=== PATIENT | female | born 1940 | race Caucasian/White ===

== ENCOUNTER → 2022-11-10 | Outpatient (REF) | payer MEDICARE, SELFPAY ==
[2022-11-10 10:45] LABS: Hematocrit 34.1 % (37-47); Hemoglobin 10.7 g/dL (12.0-15.0); Mean Corp Hgb Conc 31.4 g/dL (32-36); Mean Corpuscular Hgb 28.9 pg (27.0-32.0); Mean Corpuscular Volume 92.2 fL (81-99); Mean Platelet Vol. 10.7 fl (6.2-12.0); Platelet Count 237 K/mm3 (150-450); RBC Distribution Width CV 13.3 % (11.6-14.6); RBC Distribution Width SD 45.4 fl (35.1-43.9); White Blood Count 6.7 K/mm3 (4.4-11.0)
[2022-11-10 10:46] LABS: Vitamin D,25 Hydroxy 46.1 ng/mL
[2022-11-10 10:55] LABS: ALB/GLOB Ratio 0.9 RATIO (0.9-2.4); AST(SGOT) 17 U/L (15-37); Alanine Aminotransfer ALT/SGPT 13 U/L (13-56); Alkaline Phosphatase 78 U/L (45-117); Anion Gap 7 (5-15); BUN 27 mg/dL (7-18); BUN/Creat Ratio 22.5 RATIO (10-20); Calcium,Total 9.8 mg/dL (8.5-10.1); Chloride 109 mmol/L (98-107); EST Glomerular Filtration Rate 46 mL/min (>60); Est Glom Filt Rate - Afr Amer 55 mL/min (>60); Globulin 3.2 g/dL (2.2-4.2); Glucose 63 mg/dL (74-106); Potassium 4.5 mmol/L (3.5-5.1); Protein, Total 6.2 g/dL (6.4-8.2); Sodium Level 141 mmol/L (136-145); T4 Free Direct 1.12 ng/dL (0.76-1.46); Thyroid Stim Hormone (TSH) 4.25 uIU/mL (0.358-3.74)
== END ==
PROVIDERS: Visit Provider Family Medicine
DX: I82.409 Acute embolism and thrombosis of unspecified deep veins of unspecified lower extremity (principal); E03.9 Hypothyroidism, unspecified; M81.0 Age-related osteoporosis without current pathological fracture
CPT/HCPCS: 36415; 80053; 82306; 84439; 84443; 85027

== ENCOUNTER → 2022-11-12 | Outpatient (REF) | payer MEDICARE, SELFPAY | PROVIDERS: Visit Provider Family Medicine | DX: Z79.899 Other long term (current) drug therapy (principal); D64.9 Anemia, unspecified | CPT/HCPCS: 82274 ==

== ENCOUNTER → 2022-12-16 | Outpatient (REF) | payer MEDICARE, SELFPAY ==
[2022-12-17 07:10] LABS: Mucous, Urine 0 SEEN /hpf (<or=2+)
[2022-12-17 07:50] LABS: Glucose, Dipstick Normal (Normal); Ketone-Dipstick Negative (Negative); Leukocyte Esterase-Dipstick 100 /ul (Negative); Nitrite-Dipstick Positive (Negative); Occult Blood-Urine 50 /ul (Negative); Protein-Dipstick 15 mg/dl (Negative); Urine Bilirubin Dipstick Negative (Negative); Urine Urobilinogen Normal (Normal)
[2022-12-17 07:54] LABS: Color, Urine Yellow (Yellow); Urine Clarity Sl Cloudy (Clear)
[2022-12-17 08:12] LABS: Bacteria 3+ /hpf (None Seen); Red Blood Cells-Urine 0-5 SEEN /hpf (0-5); Squamous Epithelial Cells - UA 0-5 SEEN /hpf (5-10); White Blood Cells 50-100 SEEN /hpf (0-5)
== END ==
PROVIDERS: Visit Provider Family Medicine
DX: N39.0 Urinary tract infection, site not specified (principal)
CPT/HCPCS: 81001; 87077; 87086; 87088; 87186

== ENCOUNTER → 2023-03-18 | Outpatient (REF) | payer MEDICARE, SELFPAY ==
[2023-03-18 09:00] LABS: T4 Total, Thyroxin 11.9 ug/dL (4.8-13.9); Thyroid Stim Hormone (TSH) 2.47 uIU/mL (0.358-3.74)
== END ==
PROVIDERS: Referring Provider Family Medicine; Visit Provider Family Medicine
DX: E03.9 Hypothyroidism, unspecified (principal)
CPT/HCPCS: 36415; 84436; 84443

== ENCOUNTER → 2023-04-29 | Outpatient (REF) | payer MEDICARE, SELFPAY ==
[2023-04-29 06:49] LABS: Absolute Lymphocyte Count 2.33 X10^3/uL (0.83-4.51); Absolute Neutrophil Count 4.6 X10^3/uL (2.0-7.7); Basophil# 0.09 X10^3/uL; Basophil% 1.1 % (0-1); Eosinophil# 0.39 X10^3/uL; Eosinophils% 4.9 % (0-5); Hematocrit 37.2 % (37-47); Hemoglobin 11.6 g/dL (12.0-15.0); Lymphocyte # 2.33 X10^3/ul (0.83-4.51); Lymphocyte % 29.3 % (19-41); Mean Corp Hgb Conc 31.2 g/dL (32-36); Mean Corpuscular Hgb 27.9 pg (27.0-32.0); Mean Corpuscular Volume 89.4 fL (81-99); Mean Platelet Vol. 10.1 fl (6.2-12.0); Monocyte# 0.55 X10^3/uL; Monocyte% 6.9 % (0-10); NRBC Flagged by Analyzer 0 % (0-5); Neutrophil # 4.55 X10^3/uL (2.7-7.7); Neutrophil % 57.4 % (47-70); Platelet Count 280 K/mm3 (150-450); RBC Distribution Width CV 14.6 % (11.6-14.6); RBC Distribution Width SD 47.8 fl (35.1-43.9); Red Blood Count 4.16 M/mm3 (4.2-5.4); White Blood Count 7.9 K/mm3 (4.4-11.0)
[2023-04-29 07:33] LABS: Iron 52 ug/dL (50-170); Iron Binding Capacity,Total 372 ug/dL (250-450)
[2023-04-29 09:20] LABS: Color, Urine Yellow (Yellow); Glucose, Dipstick Normal (Normal); Ketone-Dipstick Negative (Negative); Leukocyte Esterase-Dipstick 500 /ul (Negative); Nitrite-Dipstick Positive (Negative); Occult Blood-Urine 150 /ul (Negative); Protein-Dipstick 30 mg/dl (Negative); Specific Gravity, Urine 1.015 (1.002-1.030); Urine Bilirubin Dipstick Negative (Negative); Urine Clarity Sl. Cloudy (Clear); Urine Urobilinogen Normal (Normal); Urine pH 6.5 (5.0 - 8.0)
== END ==
PROVIDERS: Visit Provider Family Medicine
DX: D64.9 Anemia, unspecified (principal); N39.0 Urinary tract infection, site not specified; N39.46 Mixed incontinence
CPT/HCPCS: 36415; 81002; 83540; 83550; 85025; 87077; 87086; 87088; 87186

== ENCOUNTER → 2023-05-17 | Outpatient (REF) | payer MEDICARE, SELFPAY ==
[2023-05-17 08:50] LABS: Hematocrit 36.5 % (37-47); Hemoglobin 11.6 g/dL (12.0-15.0); Mean Corp Hgb Conc 31.8 g/dL (32-36); Mean Corpuscular Hgb 28.4 pg (27.0-32.0); Mean Corpuscular Volume 89.5 fL (81-99); Mean Platelet Vol. 10.8 fl (6.2-12.0); Platelet Count 260 K/mm3 (150-450); RBC Distribution Width CV 15.3 % (11.6-14.6); RBC Distribution Width SD 50.1 fl (35.1-43.9); Red Blood Count 4.08 M/mm3 (4.2-5.4); White Blood Count 7.3 K/mm3 (4.4-11.0)
[2023-05-17 09:16] LABS: AST(SGOT) 16 U/L (15-37); Alanine Aminotransfer ALT/SGPT 14 U/L (13-56); Albumin, Serum 3.3 g/dL (3.2-5.0); Alkaline Phosphatase 94 U/L (45-117); Anion Gap 5 (5-15); BUN 24 mg/dL (7-18); BUN/Creat Ratio 19.4 RATIO (10-20); Calcium,Total 9.5 mg/dL (8.5-10.1); Chloride 112 mmol/L (98-107); Creatinine, Serum 1.24 mg/dL (0.55-1.02); EST Glomerular Filtration Rate 44 mL/min (>60); Est Glom Filt Rate - Afr Amer 53 mL/min (>60); Globulin 3.4 g/dL (2.2-4.2); Glucose 87 mg/dL (74-106); Potassium 4.2 mmol/L (3.5-5.1); Protein, Total 6.7 g/dL (6.4-8.2); Sodium Level 142 mmol/L (136-145); T4 Free Direct 1.24 ng/dL (0.76-1.46); Thyroid Stim Hormone (TSH) 3.94 uIU/mL (0.358-3.74)
[2023-05-17 14:43] LABS: Vitamin D,25 Hydroxy 49.5 ng/mL
== END ==
PROVIDERS: Visit Provider Family Medicine
DX: N28.1 Cyst of kidney, acquired (principal); I82.403 Acute embolism and thrombosis of unspecified deep veins of lower extremity, bilateral; R39.15 Urgency of urination; M35.3 Polymyalgia rheumatica; M81.0 Age-related osteoporosis without current pathological fracture; M19.90 Unspecified osteoarthritis, unspecified site; Z79.899 Other long term (current) drug therapy
CPT/HCPCS: 36415; 80053; 82306; 84439; 84443; 85027

== ENCOUNTER → 2023-07-15 | Outpatient (REF) | payer MEDICARE, SELFPAY ==
[2023-07-15 09:52] LABS: Color, Urine Yellow (Yellow); Glucose, Dipstick Normal (Normal); Ketone-Dipstick Negative (Negative); Leukocyte Esterase-Dipstick 25 /ul (Negative); Nitrite-Dipstick Negative (Negative); Occult Blood-Urine 10 /ul (Negative); Protein-Dipstick 15 mg/dl (Negative); Specific Gravity, Urine 1.025 (1.002-1.030); Urine Bilirubin Dipstick Negative (Negative); Urine Clarity Sl. Cloudy (Clear); Urine Urobilinogen Normal (Normal)
== END ==
PROVIDERS: Visit Provider Family Medicine
DX: N39.0 Urinary tract infection, site not specified (principal)
CPT/HCPCS: 81002; 87086; 87088

== ENCOUNTER → 2023-07-18 | Outpatient (REF) | payer MEDICARE, SELFPAY ==
[2023-07-18 09:35] LABS: Thyroid Stim Hormone (TSH) 2.89 uIU/mL (0.358-3.74)
== END ==
PROVIDERS: Visit Provider Family Medicine
DX: E03.9 Hypothyroidism, unspecified (principal)
CPT/HCPCS: 36415; 84443

== ENCOUNTER 2023-08-08 19:43 | Inpatient (IN) | payer MEDICARE, SELFPAY ==
[2023-08-08 19:44] VITALS: BP 124/102; PULSE 84; RESP 18; TEMP 36; O2SAT 99
[2023-08-08 19:47] VITALS: BMI 34.5
--- NOTE | 2023-08-08 20:02 | CT_ITS ---
STUDY: CT ABDOMEN AND PELVIS WITH CONTRAST REASON FOR EXAM: Female, 82 years old. abdominal pain RADIATION DOSAGE (If Supplied By Facility): CTDIvol = ( 21.03 ) mGy, DLP = ( 1067.19 ) mGycm TECHNIQUE: Transaxial images were obtained from the dome of the diaphragm to the symphysis pubis without oral contrast. IV 100mL Isovue-370 was administered. Sagittal and coronal images were reconstructed. Individualized dose optimization techniques were used for this CT. COMPARISON: None. FINDINGS: Minor atelectasis left lower lobe. The visualized portions of the heart are within normal limits. Large hiatal hernia noted Normal liver. Distended gallbladder without calcified stones demonstrating mild pericholecystic fluid. Normal spleen. Normal pancreas. Normal bilateral adrenal glands. Right kidney is unobstructed. There is a large cyst arising from the upper pole. Normal left kidney. Normal visualized stomach. Normal small intestine. Normal colon. No evidence for acute appendicitis Atherosclerotic changes of the aorta without evidence for aneurysm. Normal inferior vena cava. Normal retroperitoneum. Nonspecific bladder distention Normal abdominal wall. Lumbar spine demonstrates mild spondylosis CT/Abdomen/Pelvis W IV Cont ONLY IMPRESSION: Distended gallbladder without calcified stones demonstrating pericholecystic fluid possibly due to acute cholecystitis. Gallbladder ultrasound recommended for further evaluation Electronically Signed: Rich Self MD at 21:10 EST ,
--- NOTE | 2023-08-08 20:02 | EDS_ITS ---
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 Patient states that it was right after lunch when she developed lower abdominal cramping, suddenly had 5 episodes of vomitus. Patient states he got very weak, and called the ambulance. Patient denies any blood in her stool, patient has any blood in her vomit. Patient states that she has not had any diarrhea. She did have a bowel movement she thinks early this morning. PFSH <IRMA Woods - Last Filed: 08/08/23 21:02> PFSH Allergy/AdvReac Type Severity Reaction Status Date / Time Sulfa (Sulfonamide Allergy PT UNSURE Verified 08/08/23 19:44 Antibiotics) OF REACTION Social History Smoking Status: Never smoker ROS <IRMA Woods - Last Filed: 08/08/23 21:02> ROS ED ROS Narrative Constitutional: Negative for fever, weight loss, weakness. Positive for chills Eyes: Negative for vision loss, vision change, double vision ENT: Negative for any sore throat, ear pain, congestion Cardiovascular: Negative for any chest pain, tightness, palpitations Respiratory: Negative for any cough, sputum production, hemoptysis, dyspnea, dyspnea on exertion, orthopnea Gastrointestinal: Negative for any diarrhea, constipation, blood in stool, blood in vomit. Positive for abdominal pain, nausea and vomiting : Negative for any urinary frequency, dysuria, retention, blood in urine Muscle skeletal: Negative for any myalgias, arthralgias, neck pain, back pain Neurological: Negative for any headache, syncope, numbness or tingling, dizziness Skin: Negative for any rashes, lumps, itching, abrasions, lacerations Psychiatric: Negative for any depression, anxiety, stress, suicidal ideation, homicidal ideation Hematologic: Negative for any easy bruising, excessive bruising, easy bleeding Allergies: Negative for any eczema, hives, rash EXAM <IRMA Woods - Last Filed: 08/08/23 21:02> Physical Exam Narrative Exam Narrative: Vital signs reviewed. HEET: Head normocephalic atraumatic, TMs clear bilaterally. Posterior pharynx is clear, dry mucous membranes. Nares clear bilaterally. Neck: Supple with no lymphadenopathy or tenderness. No signs of meningismus. Cardiac: Regular rate and rhythm no murmurs gallops or rubs, equal peripheral pulses bilaterally. Respiratory: Lungs clear to auscultation bilaterally. No chest tenderness. Abdomen: Soft, tenderness on deep palpation of the right lower, left lower abdomen. Nondistended. No abdominal bruit or pulsatile masses. No hepatosplenomegaly. Patient had hypoactive bowel sounds. Negative for any peritoneal signs. Extremities: No peripheral edema, no signs of gross trauma or deformity. Active full range of motion of all extremities. Neuro: Cranial nerves II through XII intact, no focal neurological deficits. Skin: Clean dry and intact with no rash, purpura, petechiae, vesicles or pustules. Backs/flank: No CVA tenderness, no midline spinal tenderness, no deformity. Psych: Normal mood and affect. No SI, HI or acute psychosis. Const Vital Signs: 08/08/23 19:44 Temperature 96.8 F L Temperature Source Temporal Pulse Rate 84 Respiratory Rate 18 Blood Pressure 124/102 H Blood Pressure Mean 109 Pulse Ox 99 <Dr. Clifton Flores MD - Last Filed: 08/08/23 22:06> Physical Exam Const Vital Signs: 08/08/23 19:44 Temperature 96.8 F L Temperature Source Temporal Pulse Rate 84 Respiratory Rate 18 Blood Pressure 124/102 H Blood Pressure Mean 109 Pulse Ox 99 [facility] <IRMA Woods - Last Filed: 08/08/23 21:02> [facility] Lab Data Labs: Laboratory Results - last 24 hr 08/08/23 08/08/23 20:09 21:17 WBC 11.0 RBC 4.60 Hgb 13.1 Hct 41.6 MCV 90.4 MCH 28.5 MCHC 31.5 L RDW Std Deviation 48.5 H RDW Coeff of Kwame 14.6 Plt Count 284 MPV 10.3 Immature Gran % (Auto) 0.500 Neut % (Auto) 86.1 H Lymph % (Auto) 10.1 L Storey % (Auto) 2.7 Eos % (Auto) 0.1 Baso % (Auto) 0.5 Absolute Neuts (auto) 9.5 H Absolute Lymphs (auto) 1.11 Nucleated RBC % 0 Sodium 138 Potassium 4.1 Chloride 106 Carbon Dioxide 26.0 Anion Gap 6 BUN 21 H Creatinine 1.23 H Est GFR (MDRD) Af Amer 53 L Est GFR (MDRD) Non-Af 44 L BUN/Creatinine Ratio 17.1 Glucose 156 H Calcium 9.9 Total Bilirubin 0.40 AST 12 L ALT 16 Alkaline Phosphatase 100 Total Protein 7.2 Albumin 3.6 Globulin 3.6 Albumin/Globulin Ratio 1.0 Lipase 18 Urine Color Yellow Urine Clarity Clear Urine pH 8.0 Ur Specific [place] 1.015 Urine Protein Negative Urine Glucose (UA) Normal Urine Ketones 15 H Urine Occult Blood 25 H Urine Nitrite Negative Urine Bilirubin Negative Urine Urobilinogen Normal Ur Leukocyte Esterase Negative Urine RBC 0-5 SEEN Urine WBC 0 SEEN Ur Squamous Epith Cells 0 SEEN Urine Bacteria 0 SEEN Urine Mucus 0 SEEN Radiography Diagnostic Testing: Clinical Impression(s) from Imaging Studies Abdomen/Pelvis CT 08/08/23 20:02 IMPRESSION: Distended gallbladder without calcified stones demonstrating pericholecystic fluid possibly due to acute cholecystitis. Gallbladder ultrasound recommended for further evaluation Electronically Signed: Rich Self MD at 21:10 EST Reading Location ID and State: [address] [place] [address] Tel , Service support , Treatment and Re-Evaluation :: Patient appears to be in no obvious respiratory distress, patient is dry, patient does look like she does not feel well. Vital signs are stable. Looks nontoxic. Patient differential diagnosis includes bowel obstruction, gastroenteritis, diverticulitis, appendicitis. Patient was using basic laboratory values concerning for electrolyte abnormalities, leukocytosis, elevated liver enzymes. Urinalysis to concern for any UTI. Patient received a CT scan of the abdomen pelvis. All radiologic examinations were read, reviewed by the emergency department attending. From these reads, a plan of care will be put in place. Patient will be given IV fluids, IV Zofran, I did offer the patient pain medicine however she declined at this time. Patient CBC was unremarkable, patient's chemistries show slight renal insufficiency creatinine of 1.23, GFR 53, this is baseline since 2022. Glucose 156. Lipase negative. <Dr. Clifton Flores MD - Last Filed: 08/08/23 22:06> [facility] Narrative Medical decision making narrative: I have personally performed a face to face assessment of the patient and have reviewed the DESTINY Note. I performed a substantive portion of the visit including all aspects of the following. My acosta findings include: History is 82-year-old female complaining of periumbilical and upper abdominal pain beginning around noon today. No prior abdominal surgeries. No fever. No vomiting. No diarrhea or constipation. No dysuria. Exam is [82-year-old female. Vital signs stable afebrile. Does not look septic or toxic. No distress. HEENT exam unremarkable. Neck nontender no lymphadenopathy. Lungs clear to auscultation bilaterally. Heart regular rhythm no murmur. Abdomen soft. Nondistended. Mild epigastric and right upper quadrant tenderness. No specific Gilmore sign. No hernia or mass. No obvious obstruction. No significant right lower quadrant tenderness. No pulsatile mass. Moving all 4 extremities. Neurologically she is awake and alert with no focal motor deficits.] Medical Decision Making [82-year-old female with abdominal pain. CAT scan labs are pending.] Other additions or changes: [None] I spoke to general surgeon on-call Dr. Naveed dixon. Patient will be admitted to his service. Started on IV Zosyn. He will evaluate her and decide if she needs to go to surgery tomorrow. He did want us to obtain a preop EKG which is being ordered. Patient will be made aware of the plan. History & Record Review Discussion w/independent historian: Patient and Family Additional record(s) reviewed:: Prior inpatient record, Prior outpatient record, Prior ED visit and Prior labs Lab Data Attestation: I reviewed the patient's lab results. Lab results narrative: CBC unremarkable. White count 11. H&H 13 and 41. Platelets 284. Electrolytes show gap of 6 BUN and creatinine of 21 and 1.2. Glucose 156. Liver enzymes are unremarkable. Lipase is normal at 18. Urinalysis is normal. CAT scan of the abdomen shows a distended gallbladder with pericholecystic fluid concerning for acute cholecystitis. Labs: Laboratory Results - last 24 hr 08/08/23 08/08/23 20:09 21:17 WBC 11.0 RBC 4.60 Hgb 13.1 Hct 41.6 MCV 90.4 MCH 28.5 MCHC 31.5 L RDW Std Deviation 48.5 H RDW Coeff of Kwame 14.6 Plt Count 284 MPV 10.3 Immature Gran % (Auto) 0.500 Neut % (Auto) 86.1 H Lymph % (Auto) 10.1 L Storey % (Auto) 2.7 Eos % (Auto) 0.1 Baso % (Auto) 0.5 Absolute Neuts (auto) 9.5 H Absolute Lymphs (auto) 1.11 Nucleated RBC % 0 Sodium 138 Potassium 4.1 Chloride 106 Carbon Dioxide 26.0 Anion Gap 6 BUN 21 H Creatinine 1.23 H Est GFR (MDRD) Af Amer 53 L Est GFR (MDRD) Non-Af 44 L BUN/Creatinine Ratio 17.1 Glucose 156 H Calcium 9.9 Total Bilirubin 0.40 AST 12 L ALT 16 Alkaline Phosphatase 100 Total Protein 7.2 Albumin 3.6 Globulin 3.6 Albumin/Globulin Ratio 1.0 Lipase 18 Urine Color Yellow Urine Clarity Clear Urine pH 8.0 Ur Specific [place] 1.015 Urine Protein Negative Urine Glucose (UA) Normal Urine Ketones 15 H Urine Occult Blood 25 H Urine Nitrite Negative Urine Bilirubin Negative Urine Urobilinogen Normal Ur Leukocyte Esterase Negative Urine RBC 0-5 SEEN Urine WBC 0 SEEN Ur Squamous Epith Cells 0 SEEN Urine Bacteria 0 SEEN Urine Mucus 0 SEEN Radiography Diagnostic Testing: Clinical Impression(s) from Imaging Studies Abdomen/Pelvis CT 08/08/23 20:02 IMPRESSION: Distended gallbladder without calcified stones demonstrating pericholecystic fluid possibly due to acute cholecystitis. Gallbladder ultrasound recommended for further evaluation Electronically Signed: iRch eSlf MD at 21:10 EST Reading Location ID and State: [facility] / [place] Tel , Service support , Rhythm Strip Rhythm Strip: Sinus Rhythm Rate: 82 Ectopy: None EKG Initial EKG: Attestation: I personally reviewed and interpreted this EKG as follows: Interpretation: Sinus Rhythm and No Acute Injury Pattern Comments: Normal sinus rhythm rate 82 no acute signs of OH or ischemia. Discharge Plan Dx/Rx/DC Orders Clinical Impression: Abdominal pain, Acute cholecystitis Disposition Disposition: [facility]
[2023-08-08] MEDS: Ondansetron 4 MG/2 ML Vial IV ×2 (20:16→22:12)
[2023-08-08] MEDS: 0.9% Normal Saline (1000mL) 1,000 ML 1000 ML IV (20:16)
[2023-08-08 20:20] LABS: Absolute Lymphocyte Count 1.11 X10^3/uL (0.83-4.51); Absolute Neutrophil Count 9.5 X10^3/uL (2.0-7.7); Basophil# 0.05 X10^3/uL; Basophil% 0.5 % (0-1); Eosinophil# 0.01 X10^3/uL; Eosinophils% 0.1 % (0-5); Hematocrit 41.6 % (37-47); Hemoglobin 13.1 g/dL (12.0-15.0); Lymphocyte # 1.11 X10^3/ul (0.83-4.51); Lymphocyte % 10.1 % (19-41); Mean Corp Hgb Conc 31.5 g/dL (32-36); Mean Corpuscular Hgb 28.5 pg (27.0-32.0); Mean Corpuscular Volume 90.4 fL (81-99); Mean Platelet Vol. 10.3 fl (6.2-12.0); Monocyte% 2.7 % (0-10); NRBC Flagged by Analyzer 0 % (0-5); Neutrophil # 9.45 X10^3/uL (2.7-7.7); Neutrophil % 86.1 % (47-70); Platelet Count 284 K/mm3 (150-450); RBC Distribution Width CV 14.6 % (11.6-14.6); RBC Distribution Width SD 48.5 fl (35.1-43.9)
[2023-08-08 20:39] LABS: AST(SGOT) 12 U/L (15-37); Alanine Aminotransfer ALT/SGPT 16 U/L (13-56); Albumin, Serum 3.6 g/dL (3.2-5.0); Alkaline Phosphatase 100 U/L (45-117); Anion Gap 6 (5-15); BUN 21 mg/dL (7-18); BUN/Creat Ratio 17.1 RATIO (10-20); Calcium,Total 9.9 mg/dL (8.5-10.1); Chloride 106 mmol/L (98-107); Creatinine, Serum 1.23 mg/dL (0.55-1.02); EST Glomerular Filtration Rate 44 mL/min (>60); Est Glom Filt Rate - Afr Amer 53 mL/min (>60); Globulin 3.6 g/dL (2.2-4.2); Glucose 156 mg/dL (74-106); Lipase 18 U/L (13-75); Potassium 4.1 mmol/L (3.5-5.1); Protein, Total 7.2 g/dL (6.4-8.2); Sodium Level 138 mmol/L (136-145)
[2023-08-08 21:23] LABS: Bacteria 0 SEEN /hpf (None Seen); Mucous, Urine 0 SEEN /hpf (<or=2+); Squamous Epithelial Cells - UA 0 SEEN /hpf (5-10); White Blood Cells 0 SEEN /hpf (0-5)
[2023-08-08 21:27] LABS: Color, Urine Yellow (Yellow); Glucose, Dipstick Normal (Normal); Ketone-Dipstick 15 mg/dl (Negative); Leukocyte Esterase-Dipstick Negative /ul (Negative); Nitrite-Dipstick Negative (Negative); Occult Blood-Urine 25 /ul (Negative); Protein-Dipstick Negative (Negative); Specific Gravity, Urine 1.015 (1.002-1.030); Urine Bilirubin Dipstick Negative (Negative); Urine Clarity Clear (Clear); Urine Urobilinogen Normal (Normal)
[2023-08-08 21:33] LABS: Red Blood Cells-Urine 0-5 SEEN /hpf (0-5)
--- NOTE | 2023-08-08 21:47 | EKG12_ITS ---
Test Reason : DYSRHYTHMIA Blood Pressure : / mmHG Vent. Rate : 082 BPM Atrial Rate : 082 BPM P-R Int : 204 ms QRS Dur : 076 ms QT Int : 374 ms P-R-T Axes : 043 -01 059 degrees QTc Int : 436 ms Normal sinus rhythm Normal ECG Confirmed by DELMY STARKEY, RICKEY ([id number]), medical editor MEG SNOWDEN ([id number]) on 08/09/2023 7:53:17 AM Referred By: Confirmed By:RICKEY BROCK MD
[2023-08-08] MEDS: Piperacil/Tazobactam 4.5 GM in 0.9% Normal Saline (100mL MB+) 100 ML IV (22:11)
[2023-08-08] MEDS: Morphine 4 MG/ML Syringe IV (22:11)
[2023-08-08 22:30] VITALS: BP 188/89; PULSE 75; RESP 18; TEMP 36.6; O2SAT 98
[2023-08-09] VITALS (8 sets, daily range): BP systolic 139–168; BP diastolic 68–99; PULSE 78–108; RESP 16–20; TEMP 36.6–37.1; O2SAT 93–99; BMI 32.3
[2023-08-09] MEDS: 0.9% Normal Saline (1000mL) 1,000 ML 100 ML IV ×3 (02:11→21:20)
[2023-08-09 03:25] LABS: Absolute Neutrophil Count 11.1 X10^3/uL (2.0-7.7); Basophil# 0.03 X10^3/uL; Basophil% 0.2 % (0-1); Hematocrit 40.3 % (37-47); Hemoglobin 13.1 g/dL (12.0-15.0); Lymphocyte % 7.2 % (19-41); Mean Corp Hgb Conc 32.5 g/dL (32-36); Mean Corpuscular Hgb 29.6 pg (27.0-32.0); Mean Platelet Vol. 10.6 fl (6.2-12.0); Monocyte# 0.48 X10^3/uL; Monocyte% 3.8 % (0-10); NRBC Flagged by Analyzer 0 % (0-5); Neutrophil # 11.12 X10^3/uL (2.7-7.7); Neutrophil % 88.4 % (47-70); Platelet Count 260 K/mm3 (150-450); RBC Distribution Width CV 14.7 % (11.6-14.6); RBC Distribution Width SD 49.4 fl (35.1-43.9); Red Blood Count 4.43 M/mm3 (4.2-5.4); White Blood Count 12.6 K/mm3 (4.4-11.0)
[2023-08-09 03:45] LABS: ALB/GLOB Ratio 0.9 RATIO (0.9-2.4); AST(SGOT) 51 U/L (15-37); Alanine Aminotransfer ALT/SGPT 36 U/L (13-56); Albumin, Serum 3.6 g/dL (3.2-5.0); Alkaline Phosphatase 102 U/L (45-117); Anion Gap 8 (5-15); BUN 17 mg/dL (7-18); BUN/Creat Ratio 14.8 RATIO (10-20); Calcium,Total 9.3 mg/dL (8.5-10.1); Chloride 104 mmol/L (98-107); Creatinine, Serum 1.15 mg/dL (0.55-1.02); EST Glomerular Filtration Rate 48 mL/min (>60); Est Glom Filt Rate - Afr Amer 58 mL/min (>60); Estimated Creatinine Clearance 26.16 ml/min; Globulin 3.8 g/dL (2.2-4.2); Glucose 155 mg/dL (74-106); Potassium 4.3 mmol/L (3.5-5.1); Protein, Total 7.4 g/dL (6.4-8.2); Sodium Level 136 mmol/L (136-145)
[2023-08-09] MEDS: Piperacil/Tazobactam 3.375 GM in 0.9% Normal Saline (50mL MB+) 50 ML IV ×3 (05:40→21:20)
--- NOTE | 2023-08-09 06:23 | EKG12_ITS ---
Test Reason : PRE OP Blood Pressure : / mmHG Vent. Rate : 084 BPM Atrial Rate : 084 BPM P-R Int : 188 ms QRS Dur : 076 ms QT Int : 368 ms P-R-T Axes : 029 -20 040 degrees QTc Int : 434 ms Normal sinus rhythm Normal ECG When compared with ECG of 08-AUG-2023 21:55, MANUAL COMPARISON REQUIRED, DATA IS UNCONFIRMED Confirmed by DELMY STARKEY, RICKEY ([id number]), food expeditor ANDERSON GARCIA ([id number]) on 08/09/2023 1:20:13 PM Referred By: Confirmed By:RICKEY BROCK MD
[2023-08-09 06:43] LABS: International Normalized Ratio 1.1; Prothrombin Time (Protime)PT. 14.6 SECONDS (11.7-14.9)
[2023-08-09 07:04] LABS: Thyroid Stim Hormone (TSH) 1.14 uIU/mL (0.358-3.74)
--- NOTE | 2023-08-09 07:04 | US_ITS ---
INDICATION: acute cholecystitis EXAMINATION: Ultrasound US Abdomen Limited (quadrant) TECHNIQUE: Stafford scale and color doppler imaging was performed of the right upper quadrant. COMPARISON: Correlation is made with the recent CT abdomen pelvis of 08/08/2023. FINDINGS: LIVER: Suboptimal visualization of the liver due to overlying bowel gas. The liver appears to measure about 11 cm in length. Normal hepatopedal flow. No focal hepatic lesion. There is no free fluid. GALLBLADDER AND BILIARY TREE: Gallstone in the gallbladder neck measuring about 2.1 cm. Thickening of the gallbladder wall measuring about 6 mm. The proximal common bile duct measures 4.2, which is within normal limits for the patient''s age. Sonographic Gilmore''s sign: Positive. PANCREAS: The pancreas is obscured by bowel gas and not visualized. RIGHT KIDNEY: The right kidney appears to be echogenic but poorly visualized. There is a large cyst with septation in the lateral aspect of the right kidney measuring about 5.2 cm probably simple and no further follow-up exam is needed. US/Gallbladder IMPRESSION: 1. Gallstone with thickening of the gallbladder wall and positive sonographic Gilmore''s sign concerning for acute cholecystitis. 2. Right renal cyst. Electronically Signed: Kory Pritchett MD at 8:19 EST ,
--- NOTE | 2023-08-09 08:10 | HP.PCM.SX_ITS ---
HPI - General General Date of Admission: 08/08/23 HPI Narrative DIO BRENNER, is a 82 F who presents with pain that started yesterday afternoon. Patient reported that she did have nausea and vomiting as well. She reports right upper quadrant pain. It does not radiate. She denies fevers or chills. [facility] Medical History (Updated 08/09/23 @ 01:22 by Darshana Siddiqi RN) Anemia Chronic pain DVT (deep venous thrombosis) Functional urinary incontinence Hypothyroidism Kidney disease Vision loss of left eye Vision loss of right eye Home Medications apixaban 5 mg tablet (Eliquis) 5 mg PO BID anticoagulant 08/08/23 [History Last Taken Unknown] ferrous sulfate 325 mg (65 mg iron) tablet (Feosol) 325 mg PO DAILY supplement 08/08/23 [History Last Taken Unknown] levothyroxine 125 mcg tablet 125 mcg PO DAILY thyrroid 08/08/23 [History Last Taken Unknown] oxybutynin chloride 15 mg tablet,extended release 24 hr 15 mg PO DAILY incontinence 08/08/23 [History Last Taken Unknown] Allergy/AdvReac Type Severity Reaction Status Date / Time Sulfa (Sulfonamide Allergy PT UNSURE Verified 08/08/23 19:44 Antibiotics) OF REACTION Social History Smoking Status: Never smoker ROS Constitutional Constitutional: Reports anorexia; Denies chills, fatigue or fever(s) Eyes Eyes: Denies blurry vision ENT HEENT: Denies abnormal hearing Cardiovascular Cardiovascular: Denies chest pain Respiratory/Chest Respiratory/Chest: Denies cough or dyspnea Gastrointestinal Gastrointestinal: Reports abdominal pain, nausea and vomiting; Denies coffee ground emesis Genitourinary Genitourinary: Denies change in urinary stream Musculoskeletal Musculoskeletal: Denies back pain Integumentary Integumentary: Denies jaundice Neurologic Neurologic: Denies dizziness Psychiatric Psychiatric: Denies anxiety Endocrine Endocrinology: Denies heat intolerance Hematologic/Lymphatic Hematologic/Lymphatic: Reports easy bleeding Vital Signs Vital Signs Vital Signs: 08/08/23 19:44 08/08/23 22:30 08/09/23 00:01 Temperature 96.8 F L 98 F Temperature Source Temporal Pulse Rate 84 75 78 Pulse Strength Respiratory Rate 18 18 Respiratory Effort Respiratory Depth Respiratory Pattern Blood Pressure 124/102 H 188/89 H 139/90 H Blood Pressure Mean 109 122 106 Blood Pressure Source Blood Pressure Position Blood Pressure Location Pulse Ox 99 98 96 Oxygen Delivery Method Room Air 08/09/23 01:30 08/09/23 04:52 08/09/23 06:51 Temperature 97.9 F 98.6 F 98.6 F Temperature Source Oral Oral Oral Pulse Rate 81 82 82 Pulse Strength Respiratory Rate 20 H 16 16 Respiratory Effort Respiratory Depth Respiratory Pattern Blood Pressure 147/99 H 168/87 H 156/68 H Blood Pressure Mean 115 114 97 Blood Pressure Source Monitor Monitor Monitor Blood Pressure Position Semi-Fowlers Left Lateral Left Lateral Blood Pressure Location Left Arm Left Arm Left Arm Pulse Ox 95 93 93 Oxygen Delivery Method Room Air Room Air Room Air 08/09/23 01:00 08/09/23 08:09 Temperature Temperature Source Pulse Rate Pulse Strength Normal (2+) Respiratory Rate Respiratory Effort Normal Respiratory Depth Normal Respiratory Pattern Normal Blood Pressure Blood Pressure Mean Blood Pressure Source Blood Pressure Position Blood Pressure Location Pulse Ox Oxygen Delivery Method Room Air Weight Weight: 176 lb 12.972 oz Body Mass Index (BMI) 32.3 Physical Exam Const oriented x3 and no apparent distress Resp normal respiratory effort GI soft to palpation Palpation: tender RUQ Extremity normal to inspection Results Lab / Micro Data 08/09/23 02:54 08/09/23 02:54 Labs: Laboratory Results - last 24 hr 08/08/23 20:09: WBC 11.0, RBC 4.60, Hgb 13.1, Hct 41.6, MCV 90.4, MCH 28.5, MCHC 31.5 L, RDW Std Deviation 48.5 H, RDW Coeff of Kwame 14.6, Plt Count 284, MPV 10.3, Immature Gran % (Auto) 0.500, Neut % (Auto) 86.1 H, Lymph % (Auto) 10.1 L, [place] % (Auto) 2.7, Eos % (Auto) 0.1, Baso % (Auto) 0.5, Absolute Neuts (auto) 9.5 H, Absolute Lymphs (auto) 1.11, Nucleated RBC % 0, Sodium 138, Potassium 4.1, Chloride 106, Carbon Dioxide 26.0, Anion Gap 6, BUN 21 H, Creatinine 1.23 H , Est GFR (MDRD) Af Amer 53 L, Est GFR (MDRD) Non-Af 44 L, BUN/Creatinine Ratio 17.1, Glucose 156 H, Calcium 9.9, Total Bilirubin 0.40, AST 12 L, ALT 16, Al kaline Phosphatase 100, Total Protein 7.2, Albumin 3.6, Globulin 3.6, Albumin/Globulin Ratio 1.0, Lipase 18 08/08/23 21:17: Urine Color Yellow, Urine Clarity Clear, Urine pH 8.0, Ur Specific [place] 1.015, Urine Protein Negative, Urine Glucose (UA) Normal, Urine Ketones 15 H, Urine Occult Blood 25 H, Urine Nitrite Negative, Urine Bilirubin Negative, Urine Urobilinogen Normal, Ur Leukocyte Esterase Negative, Urine RBC 0-5 SEEN, Urine WBC 0 SEEN, Ur Squamous Epith Cells 0 SEEN, Urine Bacteria 0 SEEN, Urine Mucus 0 SEEN 08/09/23 02:54: WBC 12.6 H, RBC 4.43, Hgb 13.1, Hct 40.3, MCV 91.0, MCH 29.6, MCHC 32.5, RDW Std Deviation 49.4 H, RDW Coeff of Kwame 14.7 H, Plt Count 260, MPV 10.6, Immature Gran % (Auto) 0.400, Neut % (Auto) 88.4 H, Lymph % (Auto) 7.2 L, [place] % (Auto) 3.8, Eos % (Auto) 0.0, Baso % (Auto) 0.2, Absolute Neuts (auto) 11.1 H, Absolute Lymphs (auto) 0.90, Nucleated RBC % 0, PT 14.6, INR 1.1, Sodium 136, Potassium 4.3, Chloride 104, Carbon Dioxide 24.0, Anion Gap 8, BUN 17, Creatinine 1.15 H, Estim Creat Clear Calc 26.16, Est GFR (MDRD) Af Amer 58 L, Est GFR (MDRD) Non-Af 48 L, BUN/Creatinine Ratio 14.8, Glucose 155 H, Calcium 9.3, Total Bilirubin 0.80, AST 51 H, ALT 36, Alkaline Phosphatase 102, Total Protein 7.4, Albumin 3.6, Globulin 3.8, Albumin/Globulin Ratio 0.9, TSH 1.14 Rhythm Strip Rhythm Strip: Sinus Rhythm Rate: 82 Ectopy: None Imagaing Radiology Impression Abdomen/Pelvis CT 08/08/23 20:02 IMPRESSION: Distended gallbladder without calcified stones demonstrating pericholecystic fluid possibly due to acute cholecystitis. Gallbladder ultrasound recommended for further evaluation Electronically Signed: Rich Self MD at 21:10 EST Reading Location ID and State: [address] [place] [address] Tel , Service support , Assessment & Plan Assessment/Plan (1) Acute cholecystitis: PLAN: Patient presented to the emergency room yesterday evening with abdominal pain. CT scan revealed pericholecystic fluid. I admitted the patient and started her on antibiotics and kept her on clears. The patient is on Eliquis so I will plan for laparoscopic cholecystectomy tomorrow. I ordered an ultrasound the gallbladder which shows a large stone. I discussed surgery with her in d etail. I discussed the procedure in detail with the patient. I discussed the risks, benefits, and alternatives of the procedure. I discussed the risks including but not limited to bleeding, infection, injury to surrounding organs such as the liver, bile duct, bowels. I did discuss the possibility of having to convert to an open procedure as well as the possibility that if any injuries occurred this may necessitate further surgery at a tertiary care center. Naveed Richter MD Pager: [facility] [address] [place] [address], [address] [place] [address] Office:
[2023-08-09] MEDS: Acetaminophen 325 MG Tablet 650 MG PO (09:32)
--- NOTE | 2023-08-09 12:09 | CASEMGMT ---
Addendum entered by Briseyda Anderson 08/11/23 13:54: Discharge Planning Additional updates sent to [facility] via fax. Briseyda Anderson, Discharge Planning Asst. Original Note: Discharge Planning Updates faxed to [facility]. Briseyda Anderson, Discharge Planning Asst.
[2023-08-10] VITALS (15 sets, daily range): BP systolic 112–163; BP diastolic 60–101; PULSE 80–106; RESP 14–24; TEMP 36.1–37.4; O2SAT 88–97; BMI 32.3
[2023-08-10] MEDS: Morphine 4 MG/ML Syringe IV (05:35)
[2023-08-10] MEDS: Piperacil/Tazobactam 3.375 GM in 0.9% Normal Saline (50mL MB+) 50 ML IV ×3 (06:00→21:04)
[2023-08-10 07:31] LABS: Anion Gap 7 (5-15); BUN 13 mg/dL (7-18); BUN/Creat Ratio 12.1 RATIO (10-20); Chloride 107 mmol/L (98-107); Creatinine, Serum 1.07 mg/dL (0.55-1.02); EST Glomerular Filtration Rate 52 mL/min (>60); Est Glom Filt Rate - Afr Amer 63 mL/min (>60); Estimated Creatinine Clearance 30.95 ml/min; Glucose 116 mg/dL (74-106); Potassium 3.8 mmol/L (3.5-5.1); Sodium Level 135 mmol/L (136-145)
[2023-08-10] MEDS: 0.9% Normal Saline (1000mL) 1,000 ML 100 ML IV (07:46)
[2023-08-10 07:58] LABS: Absolute Lymphocyte Count 1.23 X10^3/uL (0.83-4.51); Absolute Neutrophil Count 18.6 X10^3/uL (2.0-7.7); Basophil# 0.05 X10^3/uL; Basophil% 0.2 % (0-1); Hematocrit 39.9 % (37-47); Hemoglobin 12.5 g/dL (12.0-15.0); Lymphocyte # 1.23 X10^3/ul (0.83-4.51); Lymphocyte % 5.7 % (19-41); Mean Corp Hgb Conc 31.3 g/dL (32-36); Mean Corpuscular Hgb 28.9 pg (27.0-32.0); Mean Corpuscular Volume 92.1 fL (81-99); Mean Platelet Vol. 11.2 fl (6.2-12.0); Monocyte# 1.35 X10^3/uL; Monocyte% 6.3 % (0-10); NRBC Flagged by Analyzer 0 % (0-5); Platelet Count 256 K/mm3 (150-450); RBC Distribution Width CV 15.2 % (11.6-14.6); RBC Distribution Width SD 51.7 fl (35.1-43.9); Red Blood Count 4.33 M/mm3 (4.2-5.4); White Blood Count 21.4 K/mm3 (4.4-11.0)
--- NOTE | 2023-08-10 08:49 | CASEMGMT ---
Patient is from [facility]. PT/OT was ordered as [place] will want to make sure patient is okay to return to them at d/c. Ellie Anaya FIREARMS INSPECTOR LILIANA
--- NOTE | 2023-08-10 15:30 | GALL_PTH ---
PATIENT: DIO BRENNER LOC: PCU U#:[id number] AGE/SX: 82/F ROOM: [facility] RE08/08/[address]: Dr. Naveed Richter MD : [id number] BED: 1 DIS: 08/16/2023 SPEC #: [id number] RECD: 08/10/23 18:33 STATUS: MARLY WHITTINGTON #: [id number] RYAN: 08/10/23 15:[address]: Naveed Richter DEPT: SURGICAL PATHOLOGY RECD BY: Laverne Mata ENTERED: 08/11/23 10:51 SP TYPE: BESS FARIAS DR: Dr. Snow Maria MD Tissues: Gallbladder, NOS Procedures: Surgery Specimen Level III HEADER OPERATION: Laparoscopic cholecystectomy with IOC PRE-OP DIAGNOSIS: Acute cholecystitis TISSUE SUBMITTED: Gallbladder MICROSCOPIC DIAGNOSIS Gallbladder, cholecystectomy: Acute cholecystitis with denudation of mucosa. Cholelithiasis. AM:jeff 08/12/2023 MICROSCOPIC DESCRIPTION Slides are reviewed. GROSS DESCRIPTION Received is one container labeled with the patient's name and designated gallbladder. The specimen consists of a distended gallbladder measuring 8.5 x 5.0 x 4.5 cm. The external surface is smooth and glistening. Focally, it is granular, hemorrhagic and contains cautery artifact. The lumen of the gallbladder contains green mucoid bile and an ovoid crystalline, light yellow calculus measuring 3.0 cm in greatest dimension. The gallbladder mucosa is reddish-wilkins and hemorrhagic without any mass lesions. The gallbladder wall averages 0.7 cm in thickness and is free of mass lesions. Cost Recovery Technician sections of the gallbladder and the cystic duct at margin of resection are submitted in one cassette. / AM:jeff 08/11/2023 TC:2 CPT: 59284
--- NOTE | 2023-08-10 17:00 | RAD_ITS ---
STUDY: INTRAOPERATIVE CHOLANGIOGRAM. REASON FOR EXAM: Female, 82 years old. LAP ANALY WITH IOC FLUOROSCOPY TIME (if supplied): ( 14.8 seconds ) minutes/seconds. One image was submitted. TECHNIQUE: An intraoperative cavagram was performed by the surgeon. Fluoroscopic services were provided. COMPARISON: None. FINDINGS: The images not diagnostic. RAD/Cholangiogram/ O R,Initial IMPRESSION: The image is not diagnostic. Electronically Signed: Floyd Bullard MD at 10:50 EST ,
[2023-08-10] MEDS: Bupivacaine Mpf 0.5% 30 ML VIAL (17:54)
--- NOTE | 2023-08-10 18:04 | OP.PCM_ITS ---
Report of Operation Date of Procedure: 08/10/23 Pre-Operative Diagnosis: Acute cholecystitis Post-Operative Diagnosis: Acute cholecystitis Surgery/Procedure Performed:: Laparoscopic cholecystectomy with cholangiogram Type of Anesthesia: General/Regional Specimen's removed: Gallbladder Estimated Blood Loss (mL): 100 Description of Procedure: After obtaining informed consent patient was brought back to the operating room. General anesthesia was induced. The abdomen was prepped and draped in usual sterile fashion. A small midline incision was made superior to the umbilicus and deepened to the level of fascia. The fascia was elevated and incised. Next the peritoneum was elevated and incised in the same fashion. Finger sweep was performed and the Sims trocar was placed into the abdomen. The balloon was inflated. The abdomen was inflated to 15 mmHg. Next a camera was introduced into the abdomen and the abdomen was inspected. Next under direct visualization three 5-mm ports were placed one subxiphoid and 2 subcostal. The gallbladder was very inflamed. It was aspirated of its contents and then grasped. Next the gallbladder was elevated and retracted toward the right shoulder. The peritoneum was stripped from the gallbladder. The infundibulum was located and retracted laterally. Next the triangle of Calot was dissected and the cystic duct and cystic artery were identified. Cholangiograms were performed. The Eng clamp was used to clamp across the infundibulum and the catheter needle was inserted into the gallbladder. Under fluoroscopy contrast was instilled into the gallbladder and the common duct, cystic duct as well as proximal hepatic ducts were identified. There was good filling of the duodenum. There were no filling defects noted in the common bile duct. The clamp was removed as well as the needle and the infundibulum was grasped once more. Three hemolock clips were placed across the cystic duct. The cystic duct was then divided leaving 2 clips on the stump. The cystic artery was clipped and divided in the same fashion. The hook cautery was then used to take the gallbladder off of the gallbladder bed. Hemostasis was obtained using cautery, argon beam coagulation, Surgicel powder. Gallbladder fossa was irrigated and no active bleeding or bile leakage was noted. Next the camera was introduced in the subxiphoid port. An Endopouch bag was placed through the umbilical port and the gallbladder was placed into it. The gallbladder was then removed through the umbilical incision. The camera was then reinserted through the umbilical port. The gallbladder fossa was inspected once more and noted to be hemostatic with no leaking bile. The abdomen was suctioned dry. The 5 mm ports were removed under direct visualization. The umbilical port was then removed and the air was removed from the abdomen. Next using an 0 Vicryl suture the umbilical fascia was closed in a [id number] fashion. The umbilical port site was irrigated local anesthetic was administered to all the incisions. All the incisions were closed with interrupted subcuticular 4-0 Monocryl sutures followed by Steri- Strips and dressings. The patient was awoken and taken to PACU in stable condition. Admit VTE Documentation VTE Mechan Device Prophylaxis: SCD's
[2023-08-10 19:26] LABS: Hematocrit 38.6 % (37-47); Hemoglobin 12.2 g/dL (12.0-15.0)
[2023-08-10] MEDS: 0.9% Normal Saline (1000mL) 1,000 ML 40 ML IV (20:55)
[2023-08-11] VITALS (11 sets, daily range): BP systolic 88–151; BP diastolic 51–89; PULSE 82–175; RESP 16–23; TEMP 36.4–37.5; O2SAT 91–98
[2023-08-11] MEDS: Piperacil/Tazobactam 3.375 GM in 0.9% Normal Saline (50mL MB+) 50 ML IV ×3 (05:13→22:45)
[2023-08-11 06:39] LABS: Absolute Lymphocyte Count 1.45 X10^3/uL (0.83-4.51); Absolute Neutrophil Count 11.1 X10^3/uL (2.0-7.7); Basophil# 0.07 X10^3/uL; Basophil% 0.5 % (0-1); Eosinophil# 0.07 X10^3/uL; Eosinophils% 0.5 % (0-5); Hematocrit 37.7 % (37-47); Hemoglobin 11.9 g/dL (12.0-15.0); Lymphocyte # 1.45 X10^3/ul (0.83-4.51); Lymphocyte % 10.6 % (19-41); Mean Corp Hgb Conc 31.6 g/dL (32-36); Mean Platelet Vol. 11.1 fl (6.2-12.0); Monocyte# 0.81 X10^3/uL; Monocyte% 5.9 % (0-10); NRBC Flagged by Analyzer 0 % (0-5); Neutrophil # 11.12 X10^3/uL (2.7-7.7); Neutrophil % 81.8 % (47-70); Platelet Count 209 K/mm3 (150-450); RBC Distribution Width CV 15.2 % (11.6-14.6); RBC Distribution Width SD 51.2 fl (35.1-43.9); White Blood Count 13.6 K/mm3 (4.4-11.0)
[2023-08-11 07:01] LABS: ALB/GLOB Ratio 0.6 RATIO (0.9-2.4); AST(SGOT) 84 U/L (15-37); Alanine Aminotransfer ALT/SGPT 66 U/L (13-56); Albumin, Serum 2.2 g/dL (3.2-5.0); Alkaline Phosphatase 107 U/L (45-117); Anion Gap 4 (5-15); BUN 15 mg/dL (7-18); BUN/Creat Ratio 14.6 RATIO (10-20); Calcium,Total 8.8 mg/dL (8.5-10.1); Chloride 110 mmol/L (98-107); Creatinine, Serum 1.03 mg/dL (0.55-1.02); EST Glomerular Filtration Rate 54 mL/min (>60); Est Glom Filt Rate - Afr Amer 66 mL/min (>60); Estimated Creatinine Clearance 32.16 ml/min; Globulin 3.6 g/dL (2.2-4.2); Glucose 96 mg/dL (74-106); Potassium 3.9 mmol/L (3.5-5.1); Protein, Total 5.8 g/dL (6.4-8.2); Sodium Level 137 mmol/L (136-145)
[2023-08-11] MEDS: Morphine 2 MG/ML Syringe IV (07:04)
[2023-08-11] MEDS: 0.9% Saline Lock 10 ML Syringe IV (07:06)
--- NOTE | 2023-08-11 08:06 | PN.SURG_ITS ---
Subjective Subjective The patient reports a lot of right upper quadrant pain today. She denies nausea or vomiting. Objective Data Objective Data Vital Signs: Vital Signs Temp Pulse Resp BP Pulse Ox O2 Del Method O2 Flow Rate 97.5 F L 98 16 151/79 H 96 Room Air 2 08/11/23 07:50 08/11/23 07:50 08/11/23 07:50 08/11/23 07:50 08/11/23 07:50 08/11/23 07:50 08/11/23 03:07 Oxygen Flow Rate (L/min) 2 Oxygen Delivery Method Room Air Weight: 176 lb 12.972 oz Body Mass Index (BMI) 32.3 Intake & Output: Intake and Output for Last 24 Hours 08/09/23 08/10/23 08/11/23 23:59 23:59 23:59 Intake Total 2375 / 2375 3150 / 3150 50 50 Output Total 1200 / 1200 450 / 450 0 / 0 Balance 1175 / 1175 2700 / 2700 Lab / Micro Data 08/11/23 05:45 08/11/23 05:45 Labs: Laboratory Results - last 24 hr 08/10/23 19:10: Hgb 12.2, Hct 38.6 08/11/23 05:45: WBC 13.6 H, RBC 4.10 L, Hgb 11.9 L, Hct 37.7, MCV 92.0, MCH 29.0, MCHC 31.6 L, RDW Std Deviation 51.2 H, RDW Coeff of Kwame 15.2 H, Plt Count 209, MPV 11.1, Immature Gran % (Auto) 0.700, Neut % (Auto) 81.8 H, Lymph % (Auto) 10.6 L, [place] % (Auto) 5.9, Eos % (Auto) 0.5, Baso % (Auto) 0.5, Absolute Neuts (auto) 11.1 H, Absolute Lymphs (auto) 1.45, Nucleated RBC % 0, Sodium 137, Potassium 3.9, Chloride 110 H, Carbon Dioxide 23.0, Anion Gap 4 L, BUN 15, Creatinine 1.03 H, Estim Creat Clear Calc 32.16, Est GFR (MDRD) Af Amer 66, Est GFR (MDRD) Non-Af 54 L, BUN/Creatinine Ratio 14.6, Glucose 96, Calcium 8.8, Total Bilirubin 0.60, AST 84 H, ALT 66 H, Alkaline Phosphatase 107, Total Protein 5.8 L, Albumin 2.2 L, Globulin 3.6, Albumin/Globulin Ratio 0.6 L Rhythm Strip Rhythm Strip: Sinus Rhythm Rate: 82 Ectopy: None Physical Exam Const oriented x3 Resp normal respiratory effort GI soft to palpation Palpation: tender RUQ Assessment & Plan Assessment/Plan (1) Acute cholecystitis: PLAN: The patient had a lot of inflammation during her surgery yesterday as well as a lot of bleeding due to her Eliquis and very friable tissue. The hemoglobin was stable after surgery and again this morning. Her white count is coming down. Continue IV antibiotics. I will keep her on clear liquids until her pain is better controlled and she is more comfortable. After that I will start regular diet and I will likely resume her blood thinners in 2 days. Naveed Richter MD Pager: [facility] [address] [place] [address], [address] [place] [address] Office:
--- NOTE | 2023-08-11 13:30 | CASEMGMT ---
Per therapy patient did not do well. Therapy would not recommend patient return to assisted living in this condition. SW met with patient's son and . SW introduced self and role at [facility]. SW explained that therapy worked with patient today and she did not do well. SW asked if therapy recommended patient go to a [facility] facility short term would they be agreeable to this. Patient's son said ideally they would like patient to return to [facility], but they would be open to discussing this. SW did let them know that updates will also be sent to [facility] to get their input as well. Plan: Back to [facility] vs SNF pending patient's progress Ellie Anaya FIELD REPRESENTATIVE LILIANA
[2023-08-11] MEDS: Morphine 4 MG/ML Syringe IV (14:26)
--- NOTE | 2023-08-11 14:51 | EKG12_ITS ---
Test Reason : TACHY Blood Pressure : / mmHG Vent. Rate : 163 BPM Atrial Rate : 326 BPM P-R Int : 000 ms QRS Dur : 062 ms QT Int : 254 ms P-R-T Axes : 235 -07 -27 degrees QTc Int : 418 ms Critical Test Result: High HR Atrial flutter with 2:1 A-V conduction Inferior infarct , age undetermined Abnormal ECG Confirmed by DELMY STARKEY, RICKEY ([id number]), sports editor MEG SNOWDEN ([id number]) on 08/12/2023 1:58:20 PM Referred By: BELINDA Confirmed By:RICKEY BROCK MD
--- NOTE | 2023-08-11 15:26 | PN.HOSP_ITS ---
Reason for Visit Reason for Visit: Diagnoses Acute cholecystitis (08/08/23) Subjective Subjective Patient initially presented to the ED on 08/08 for acute right upper quadrant pain. She is a general surgery primary patient. She is s/p laparoscopic cholecystectomy for acute cholecystitis on 08/10. Medicine was consulted on the afternoon of 08/11 when patient developed a new onset tachycardia concerning for SVT versus atrial fibrillation. Patient seen at bedside on afternoon of 08/11, son and present. Patient was laying comfortably in bed, in no acute distress. Patient appeared fatigued and quite debilitated on my exam. She was able to turn her head towards me and answer most questions with soft, short responses but otherwise did not do much in bed during my encounter. She denied any acute pain or discomfort currently. She denied any palpitations. Denied any lightheadedness or dizziness. No other acute concerns at this time. Objective Data Objective Data Vital Signs: Vital Signs Temp Pulse Resp BP Pulse Ox O2 Del Method O2 Flow Rate 98.8 F 163 H 18 104/53 L 93 Room Air 2 08/11/23 14:00 08/11/23 14:00 08/11/23 14:00 08/11/23 14:00 08/11/23 14:00 08/11/23 14:00 08/11/23 11:15 Oxygen Flow Rate (L/min) 2 Oxygen Delivery Method Room Air Weight: 80.2 kg Body Mass Index (BMI) 32.3 Intake & Output: Intake and Output for Last 24 Hours 08/09/23 08/10/23 08/11/23 23:59 23:59 23:59 Intake Total 2375 / 2375 3150 / 3150 100 / 100 Output Total 1200 / 1200 450 / 450 500 / 500 Balance 1175 / 1175 2700 / 2700 -400 / -400 Lab / Micro Data 08/11/23 16:00 08/11/23 05:45 Labs: Laboratory Results - last 24 hr 08/10/23 19:10: Hgb 12.2, Hct 38.6 08/11/23 05:45: WBC 13.6 H, RBC 4.10 L, Hgb 11.9 L, Hct 37.7, MCV 92.0, MCH 29.0, MCHC 31.6 L, RDW Std Deviation 51.2 H, RDW Coeff of Kwame 15.2 H, Plt Count 209, MPV 11.1, Immature Gran % (Auto) 0.700, Neut % (Auto) 81.8 H, Lymph % (Auto) 10.6 L, [place] % (Auto) 5.9, Eos % (Auto) 0.5, Baso % (Auto) 0.5, Absolute Neuts (auto) 11.1 H, Absolute Lymphs (auto) 1.45, Nucleated RBC % 0, Sodium 137, Potassium 3.9, Chloride 110 H, Carbon Dioxide 23.0, Anion Gap 4 L, BUN 15, Creatinine 1.03 H, Estim Creat Clear Calc 32.16, Est GFR (MDRD) Af Amer 66, Est GFR (MDRD) Non-Af 54 L, BUN/Creatinine Ratio 14.6, Glucose 96, Calcium 8.8, Total Bilirubin 0.60, AST 84 H, ALT 66 H, Alkaline Phosphatase 107, Total Protein 5.8 L, Albumin 2.2 L, Globulin 3.6, Albumin/Globulin Ratio 0.6 L Radiography Diagnostic Testing: Radiology Impression Cholangiogram 08/10/23 17:00 IMPRESSION: The image is not diagnostic. Electronically Signed: Floyd Bullard MD at 10:50 EST , Rhythm Strip Rhythm Strip: Sinus Rhythm Rate: 82 Ectopy: None Physical Exam Const alert and no apparent distress Constitutional Narrative: Elderly female, chronically ill-appearing, moderately fatigued and debilitated, laying comfortably in bed, no acute distress. Alert and answered most of my questions with soft, short responses. General Appearance: cooperative and comfortable HEENT normocephalic, head/scalp atraumatic, hearing grossly normal bilaterally, nasal mucous membranes and turbinates normal and moist oral mucous membranes Eyes PERRL, EOMs intact bilaterally and conjunctivae normal Neck full ROM, no lymphadenopathy and supple Lymph Lymphatic: no lymphadenopathy noted Chest inspection of chest normal Resp normal respiratory effort, no use of accessory muscles and clear to auscultation bilaterally Resp Narrative: Mildly decreased breath sounds at lung bases. No crackles or wheezing noted. Otherwise satting in mid 90s on 2 L nasal cannula, no increased work of breathing noted. Cardio no murmurs and peripheral pulses 2+ throughout Cardio Narrative: Tachycardic, irregular rhythm. GI normal to inspection, nondistended, normoactive bowel sounds, soft to palpation, non-tender and non-distended Back/Spine normal ROM Extremity normal to inspection Skin no rashes or lesions noted Assessment & Plan Assessment/Plan (1) Paroxysmal atrial fibrillation with RVR: (2) Acute cholecystitis: PLAN: Plan Patient is an 82-year-old female who presented to [facility] ED on 08/08/2023 with right upper quadrant abdominal pain and nausea/vomiting. She is a general surgery primary patient. S/p laparoscopic cholecystectomy on 08/10, tolerated procedure well. Post operative hospital course complicated by new onset tachycardia concerning for SVT versus atrial fibrillation, medicine consulted for further management. 1. Transient episode of atrial fibrillation/atrial flutter with RVR, resolved Suspect due to postoperative stress state. No previous history of atrial fibrillation or atrial flutter noted. Found to have heart rate in the 160s on afternoon of 08/11, EKG showed apparent 2:1 atrial flutter. On telemetry, patient appeared to be flipping between atrial flutter and atrial fibrillation. Blood pressure remained stable. Patient was given 1 dose of IV Lopressor 5 mg with conversion to normal sinus rhythm after 1 to 2 minutes. Given small bolus of IV fluids with improvement in blood pressure. ? Monitor telemetry. If atrial fibrillation/atrial flutter recurs, could co nsider starting low-dose beta-renetta at that time. 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 IV Lopressor 5 mg every 6 hours as needed ordered. 2. Acute cholecystitis ? S/p laparoscopic cholecystectomy with Dr. Richter, general surgery primary patient. Per surgery, patient apparently had a lot of inflammation yesterday during surgery, as well as a significant amount of bleeding with very friable tissue. Monitor for anemia as noted below. 3. Acute on chronic anemia Baseline hemoglobin around 12-13. Hemoglobin preoperatively on 08/10 was 12.5, stable postoperatively at 12.2 despite significant bleeding during surgery as noted above. Hemoglobin has mildly downtrended since then, most recent hemoglob in of 11.0 on afternoon 08/11. ? Holding Eliquis as noted above. Follow-up CBC in the AM. If hemoglobin significantly downtrends, we will need to discuss with surgery on neck steps. Okay to continue home iron supplement. 4. Debility ? Resides in assisted living at [facility]. PT/OT/case management following. Patient did not do very well with therapy postoperatively, recommendation is for SNF at this time. Follow-up. Chronic medical conditions: ? 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 ? Hypothyroidism: TSH 1.14 on 08/09. Continue home Synthroid. ? Urinary incontinence: Continue home oxybutynin. DVT prophylaxis: SCDs CODE STATUS: Full code, unverified Expected disposition: Back to assisted living facility versus SNF, TBD Total clinical time spent by myself addressing the patient's medical issues, reviewing all the data, and collaborating with patient's care team: 35 minutes. Charges/Coding Visit Charges Inpatient E&M: 69536 Subs Hosp L2
[2023-08-11] MEDS: Metoprolol Tartrate 5 MG/5 ML Vial IV (15:31)
[2023-08-11] MEDS: 0.9% Normal Saline (500mL Bag) 500 ML 999 ML IV (15:34)
[2023-08-11 16:40] LABS: Hematocrit 35.9 % (37-47); Mean Corp Hgb Conc 30.6 g/dL (32-36); Mean Corpuscular Hgb 28.9 pg (27.0-32.0); Mean Corpuscular Volume 94.2 fL (81-99); Mean Platelet Vol. 11.3 fl (6.2-12.0); Platelet Count 222 K/mm3 (150-450); RBC Distribution Width SD 52.6 fl (35.1-43.9); Red Blood Count 3.81 M/mm3 (4.2-5.4); White Blood Count 11.6 K/mm3 (4.4-11.0)
[2023-08-11] MEDS: 0.9% Normal Saline (1000mL) 1,000 ML 50 ML IV (17:42)
[2023-08-11] MEDS: Menthol/Lanolin/Calamine/Znox 113 GM Tube 1 APPLIC TOPICAL (22:44)
[2023-08-11] MEDS: Nystatin Powder 15gm Bottle 1 APPLIC TOPICAL (22:45)
[2023-08-12] VITALS (16 sets, daily range): BP systolic 96–153; BP diastolic 49–75; PULSE 73–145; RESP 16–24; TEMP 36.6–37; O2SAT 88–98
[2023-08-12] MEDS: Piperacil/Tazobactam 3.375 GM in 0.9% Normal Saline (50mL MB+) 50 ML IV (05:11)
[2023-08-12] MEDS: Nystatin Powder 15gm Bottle 1 APPLIC TOPICAL ×3 (05:12→20:16)
[2023-08-12] MEDS: Menthol/Lanolin/Calamine/Znox 113 GM Tube 1 APPLIC TOPICAL ×3 (05:13→20:16)
[2023-08-12 08:06] LABS: Absolute Lymphocyte Count 1.19 X10^3/uL (0.83-4.51); Absolute Neutrophil Count 7.5 X10^3/uL (2.0-7.7); Basophil# 0.08 X10^3/uL; Basophil% 0.8 % (0-1); Eosinophil# 0.32 X10^3/uL; Eosinophils% 3.3 % (0-5); Hematocrit 31.8 % (37-47); Lymphocyte # 1.19 X10^3/ul (0.83-4.51); Lymphocyte % 12.2 % (19-41); Mean Corp Hgb Conc 31.4 g/dL (32-36); Mean Corpuscular Volume 92.2 fL (81-99); Mean Platelet Vol. 10.6 fl (6.2-12.0); Monocyte% 6.1 % (0-10); NRBC Flagged by Analyzer 0 % (0-5); Neutrophil # 7.53 X10^3/uL (2.7-7.7); Neutrophil % 77.2 % (47-70); Platelet Count 213 K/mm3 (150-450); RBC Distribution Width CV 15.1 % (11.6-14.6); RBC Distribution Width SD 50.7 fl (35.1-43.9); Red Blood Count 3.45 M/mm3 (4.2-5.4); White Blood Count 9.8 K/mm3 (4.4-11.0)
[2023-08-12 08:16] LABS: Anion Gap 6 (5-15); BUN 17 mg/dL (7-18); BUN/Creat Ratio 14.5 RATIO (10-20); Calcium,Total 8.9 mg/dL (8.5-10.1); Chloride 114 mmol/L (98-107); Creatinine, Serum 1.17 mg/dL (0.55-1.02); EST Glomerular Filtration Rate 47 mL/min (>60); Est Glom Filt Rate - Afr Amer 57 mL/min (>60); Estimated Creatinine Clearance 28.31 ml/min; Glucose 81 mg/dL (74-106); Potassium 3.5 mmol/L (3.5-5.1); Sodium Level 141 mmol/L (136-145)
[2023-08-12] MEDS: Ensure Clear 120 ML Liquid PO ×2 (08:18→18:14)
[2023-08-12] MEDS: Heparin Injection (Vial) 5,000 UNIT/ML VIAL 5000 UNIT SC ×3 (08:21→20:16)
[2023-08-12] MEDS: Tolterodine Tartrate 4 MG CAP.SA PO (08:22)
[2023-08-12] MEDS: Levothyroxine 125 MCG Tablet PO (08:22)
--- NOTE | 2023-08-12 08:26 | PCM.PN.HOSP ---
Reason for Visit Reason for Visit: Right upper quadrant pain Subjective Subjective We are seeing this patient in consultation along with Dr. Richter postoperatively due to the patient developing tachycardia that was concerning for SVT versus atrial fibrillation postoperatively. Patient was taken to the OR on 08/10/2023 and developed new onset tachycardia the following day. It appears that the patient had transient atrial fibrillation/flutter with RVR that had resolved at the time of our evaluation. Heart rate was in the 160s and it appeared to be atrial flutter with 2-1 block with intermittent fibrillation. Patient was given metoprolol 5 mg IV x 1 dose and transferred to telemetry floor for ongoing monitoring. It appears that since yesterday afternoon she has been in sinus rhythm. Objective Data Objective Data Vital Signs: Vital Signs Temp Pulse Resp BP Pulse Ox O2 Del Method O2 Flow Rate 97.9 F 77 19 H 137/61 H 94 Nasal Cannula 2 08/12/23 03:00 08/12/23 03:00 08/12/23 03:00 08/12/23 03:00 08/12/23 03:00 08/12/23 03:00 08/12/23 03:00 Oxygen Flow Rate (L/min) 2 Oxygen Delivery Method Nasal Cannula Weight: 80.2 kg Body Mass Index (BMI) 32.3 Intake & Output: Intake and Output for Last 24 Hours 08/10/23 08/11/23 08/12/23 23:59 23:59 23:59 Intake Total 3150 / 3150 1648.92 / 1648.92 100 / 100 Output Total 450 / 450 800 / 950 300 / 300 Balance 2700 / 2700 848.92 / 698.92 -200 / -200 Lab / Micro Data 08/12/23 07:45 08/12/23 07:45 Labs: Laboratory Results - last 24 hr 08/11/23 16:00: WBC 11.6 H, RBC 3.81 L, Hgb 11.0 L, Hct 35.9 L, MCV 94.2, MCH 28.9, MCHC 30.6 L, RDW Std Deviation 52.6 H, RDW Coeff of Kwame 15.0 H, Plt Count 222, MPV 11.3 08/12/23 07:45: WBC 9.8, RBC 3.45 L, Hgb 10.0 L, Hct 31.8 L, MCV 92.2, MCH 29.0, MCHC 31.4 L, RDW Std Deviation 50.7 H, RDW Coeff of Kwame 15.1 H, Plt Count 213, MPV 10.6, Immature Gran % (Auto) 0.400, Neut % (Auto) 77.2 H, Lymph % (Auto) 12.2 L, [place] % (Auto) 6.1, Eos % (Auto) 3.3, Baso % (Auto) 0.8, Absolute Neuts (auto) 7.5, Absolute Lymphs (auto) 1.19, Nucleated RBC % 0, Sodium 141, Potassium 3.5, Chloride 114 H, Carbon Dioxide 21.0, Anion Gap 6, BUN 17, Creatinine 1.17 H, Estim Creat Clear Calc 28.31, Est GFR (MDRD) Af Amer 57 L, Est GFR (MDRD) Non-Af 47 L, BUN/Creatinine Ratio 14.5, Glucose 81, Calcium 8.9 Radiography Diagnostic Testing: Radiology Impression Cholangiogram 08/10/23 17:00 IMPRESSION: The image is not diagnostic. Electronically Signed: Floyd Bullard MD at 10:50 EST , Rhythm Strip Rhythm Strip: Sinus Rhythm Rate: 82 Ectopy: None Assessment & Plan Assessment/Plan (1) Paroxysmal atrial fibrillation with RVR: (2) Acute cholecystitis: (3) Abdominal pain: (4) Debility: (5) Dysphagia: PLAN: Plan Atrial fibrillation/flutter with RVR -Resolved -Patient was given Lopressor IV x 1 dose and since has converted to normal sinus rhythm -Will start low-dose beta-renetta at 12.5 mg p.o. twice daily as she does have blood pressure that we will tolerate this -[id number] score is 3--> will need anticoagulated however will need to discuss with general surgery on timing of this -Check echocardiogram -Check TSH as patient does have history of hypothyroidism and is on medication -Would recommend event monitor at discharge with outpatient cardiology follow-up to ensure that this was just a postoperative event and not a paroxysmal event that has been ongoing Acute cholecystitis -Postop day 2 -Management per primary service -Currently on clear liquid diet Debility -PT/OT following -Case management/social work following and patient currently resides at [facility] where she receives quite a bit of assistance and they feel comfortable taking her back as long as family is agreeable Dysphagia -Patient with some coughing after eating -Concerning for swallowing difficulties -Speech therapy consultation pending Acute anemia -Hemoglobin has appeared to drop 1 g in the last 24 hours -Would recommend ensuring stability of her hemoglobin prior to initiating Eliquis -Repeat hemoglobin this afternoon at 1300 -Continue home iron supplementation -Baseline hemoglobin appears to run between 12 and 13 History of DVT -Restart apixaban as soon as okay with general surgery CKD stage III A -Baseline serum creatinine appears to run between 1.0 and 1.2 -Current serum creatinine 1.17 -Continue to monitor -Continue IV fluids at 50 cc/h until p.o. intake improves Hypothyroidism -Continue home levothyroxine Urinary incontinence -Continue home oxybutynin Bilateral visual impairment -Chronic stable DVT prophylaxis -Per primary service -Restart Eliquis as soon as appropriate Charges/Coding Visit Charges Inpatient E&M: 88872 Subs Hosp L2
--- NOTE | 2023-08-12 08:33 | ECHOD_ITS ---
Reason For Study: AFIB Procedure This was a 2D Doppler, Color Flow transthoracic echocardiogram. Technically difficult study due to uncooperative patient. Patient scanned supine. Exam performed portable in patient room. Left Ventricle Normal LV size. Mild concentric left ventricular hypertrophy. Left ventricular systolic function is normal. The estimated ejection fraction is 60 %. Stage 1 diastolic dysfunction. No regional wall motion abnormalities noted. Right Ventricle Normal RV size. Normal systolic function. Atria Normal left atrium. Normal right atrium. Mitral Valve Normal mitral valve. Tricuspid Valve Normal tricuspid valve. Aortic Valve Normal aortic valve. Trisinus/trileaflet aortic valve. Pulmonic Valve The pulmonic valve is not well visualized. Great Vessels Normal aortic root. The pulmonary artery is normal size. Normal inferior vena cava. Pericardium/Pleural No pericardial effusion. MMode/2D Measurements & Calculations LVIDd: 3.8 cm IVSd: 1.2 cm LAV(MOD-bp): 38.0 ml LVIDs: 2.1 cm LVPWd: 1.2 cm LAV(MOD-bp) Indexed: 21.0 ml/m2 RVDd: 3.2 cm FS: 44.0 % LAV(MOD-sp2): 36.8 ml LAV(MOD-sp4): 39.4 ml SV(MOD-sp4): 28.6 ml SV(sp4-el): 30.7 ml LVAd ap4: 20.7 cm2 LVLd ap4: 7.4 cm EDV(MOD-sp4): 46.7 ml EDV(sp4-el): 49.2 ml LVAs ap4: 11.9 cm2 LVLs ap4: 6.5 cm ESV(MOD-sp4): 18.1 ml ESV(sp4-el): 18.5 ml EF(MOD-sp4): 61.2 % EF(sp4-el): 62.5 % LA A4 area: 15.4 cm2 LA dimension(2D): 2.5 cm RA A4 area: 9.2 cm2 TAPSE: 1.8 cm Time Measurements MV dec time: 0.10 sec Doppler Measurements & Calculations MV E max michele: 75.2 cm/sec Lat Peak E' Michele: 5.7 cm/sec Med Peak E' Michele: 4.9 cm/sec MV A max michele: 135.7 cm/sec E/E' lat: 13.1 E/E' med: 15.4 MV E/A: 0.55 MV V2 max: 148.4 cm/sec Ao V2 max: 174.8 cm/sec MV max P.8 mmHg MV dec slope: 756.2 cm/sec2 Ao max P.2 mmHg MV V2 mean: 82.7 cm/sec Ao V2 mean: 129.6 cm/sec MV mean P.2 mmHg Ao mean P.5 mmHg MV V2 VTI: 30.9 cm Ao V2 VTI: 39.9 cm AV (velocity ratio): 0.76 LV V1 max: 136.9 cm/sec PA V2 max: 108.0 cm/sec LV V1 max P.5 mmHg PA V2 mean: 80.0 cm/sec LV V1 mean P.5 mmHg LV V1 mean: 98.9 cm/sec LV V1 VTI: 30.2 cm ECHO/Echo Complete Interpretation Summary Normal LV size. Left ventricular systolic function is normal. The estimated ejection fraction is 60 %. Stage 1 diastolic dysfunction. Mild concentric left ventricular hypertrophy. Ordering Physician: Annie Barrera Referring Physician: Snow Maria M.D. Performed By: Shanti Vargas RCS
--- NOTE | 2023-08-12 08:37 | PN.SURG_ITS ---
Subjective Subjective The patient went into tachycardia yesterday. Hospitalist was consulted. This morning she says she feels more comfortable than she did yesterday. She denies nausea or vomiting. She says most of her pain is at her midline incision. Objective Data Objective Data Vital Signs: Vital Signs Temp Pulse Resp BP Pulse Ox O2 Del Method O2 Flow Rate 97.9 F 77 19 H 137/61 H 94 Nasal Cannula 2 08/12/23 03:00 08/12/23 03:00 08/12/23 03:00 08/12/23 03:00 08/12/23 03:00 08/12/23 03:00 08/12/23 03:00 Oxygen Flow Rate (L/min) 2 Oxygen Delivery Method Nasal Cannula Weight: 176 lb 12.972 oz Body Mass Index (BMI) 32.3 Intake & Output: Intake and Output for Last 24 Hours 08/10/23 08/11/23 08/12/23 23:59 23:59 23:59 Intake Total 3150 / 3150 1648.92 / 1648.92 100 / 100 Output Total 450 / 450 800 / 950 300 / 300 Balance 2700 / 2700 848.92 / 698.92 -200 / -200 Lab / Micro Data 08/12/23 07:45 08/12/23 07:45 Labs: Laboratory Results - last 24 hr 08/11/23 16:00: WBC 11.6 H, RBC 3.81 L, Hgb 11.0 L, Hct 35.9 L, MCV 94.2, MCH 28.9, MCHC 30.6 L, RDW Std Deviation 52.6 H, RDW Coeff of Kwame 15.0 H, Plt Count 222, MPV 11.3 08/12/23 07:45: WBC 9.8, RBC 3.45 L, Hgb 10.0 L, Hct 31.8 L, MCV 92.2, MCH 29.0, MCHC 31.4 L, RDW Std Deviation 50.7 H, RDW Coeff of Kwame 15.1 H, Plt Count 213, MPV 10.6, Immature Gran % (Auto) 0.400, Neut % (Auto) 77.2 H, Lymph % (Auto) 12.2 L, [place] % (Auto) 6.1, Eos % (Auto) 3.3, Baso % (Auto) 0.8, Absolute Neuts (auto) 7.5, Absolute Lymphs (auto) 1.19, Nucleated RBC % 0, Sodium 141, Potassium 3.5, Chloride 114 H, Carbon Dioxide 21.0, Anion Gap 6, BUN 17, Creatinine 1.17 H, Estim Creat Clear Calc 28.31, Est GFR (MDRD) Af Amer 57 L, Est GFR (MDRD) Non-Af 47 L, BUN/Creatinine Ratio 14.5, Glucose 81, Calcium 8.9 Radiography Diagnostic Testing: Radiology Impression Cholangiogram 08/10/23 17:00 IMPRESSION: The image is not diagnostic. Electronically Signed: Floyd Bullard MD at 10:50 EST , Rhythm Strip Rhythm Strip: Sinus Rhythm Rate: 82 Ectopy: None Physical Exam Const oriented x3 and no apparent distress Resp normal respiratory effort GI soft to palpation Palpation: tender Assessment & Plan Assessment/Plan (1) Paroxysmal atrial fibrillation with RVR: (2) Acute cholecystitis: PLAN: Plan Hospitalist service was consulted yesterday afternoon for tachycardia. They determined it was A-fib with RVR and started beta-blockade. She is in normal rate at this time. I will continue clear liquids today as she did not take in much clears yesterday. If she tolerates this we will start advancing her diet tomorrow. I will start subcutaneous heparin today. If she tolerates this and her hemoglobin stays stable tomorrow we can resume her oral anticoagulation Naveed Richter MD Pager: [facility] [address] [place] [address], [address] [place] [address] Office:
[2023-08-12 09:03] LABS: Thyroid Stim Hormone (TSH) 2.59 uIU/mL (0.358-3.74)
--- NOTE | 2023-08-12 09:43 | CASEMGMT ---
Discharge Planning A list of?SNF providers including quality and resource use data and consistent with the patient's preferred geographic region, medical needs, and insurance network was created in [employer] Guide.? This list was provided to the HALEY. Briseyda Anderson, Discharge Planning Asst
--- NOTE | 2023-08-12 10:06 | CASEMGMT ---
Updates including PT/OT have been sent to [facility]. They indicate patient only uses a wheelchair, never uses a walker, they assist with toileting, bathing, and adl's. Elsa is fine with taking patient back at her current level of care. Elsa would arrange home health for patient. HALEY will talk with patient's son again. Ellie Anaya SENIOR ADMINISTRATOR SUPPORT LILIANA
[2023-08-12] MEDS: Metoprolol Tartrate 25 MG Tablet 12.5 MG PO ×2 (10:20→20:15)
[2023-08-12] MEDS: 0.9% Normal Saline (1000mL) 1,000 ML 50 ML IV (12:00)
[2023-08-12] MEDS: Morphine 4 MG/ML Syringe IV (16:03)
--- NOTE | 2023-08-12 16:41 | CASEMGMT ---
SW will attempt to talk with patient's and son to confirm they would like patient to return to [place] or if they would like to pursue long-term. Ellie Anaya WIRELESS CONSULTANT LILIANA
--- NOTE | 2023-08-12 20:50 | PCM.HOSP.N ---
Hospitalist Note Patient reverted back into atrial fibrillation with RVR. 15 minutes prior, patient received total of 5 mg Toprol tartrate. But heart rate has maintained in the 150s. Will bolus her with diltiazem 20 mg and then start her on diltiazem infusion. Hold metoprolol for now.
[2023-08-12] MEDS: 0.9% Saline Lock 10 ML Syringe IV (21:01)
[2023-08-12] MEDS: dilTIAZem 25 MG/5 ML Vial 20 MG IV BOLUS (21:02)
[2023-08-12] MEDS: Diltiazem 125 MG in Dextrose 5%-Water (100mL Bag) 100 ML CONT INF (21:20)
[2023-08-12] MEDS: dilTIAZem 30 MG Tablet PO (23:45)
[2023-08-13] VITALS (8 sets, daily range): BP systolic 105–168; BP diastolic 59–92; PULSE 75–96; RESP 12–20; TEMP 36.2–36.6; O2SAT 91–97
[2023-08-13] MEDS: dilTIAZem 30 MG Tablet PO ×4 (05:13→23:06)
[2023-08-13] MEDS: Menthol/Lanolin/Calamine/Znox 113 GM Tube 1 APPLIC TOPICAL ×3 (05:14→21:37)
[2023-08-13] MEDS: Heparin Injection (Vial) 5,000 UNIT/ML VIAL 5000 UNIT SC (05:24)
[2023-08-13] MEDS: Levothyroxine 125 MCG Tablet PO (05:24)
[2023-08-13] MEDS: Nystatin Powder 15gm Bottle 1 APPLIC TOPICAL ×3 (05:24→21:38)
[2023-08-13] MEDS: 0.9% Normal Saline (1000mL) 1,000 ML 50 ML IV (06:12)
[2023-08-13 06:29] LABS: Absolute Lymphocyte Count 1.55 X10^3/uL (0.83-4.51); Absolute Neutrophil Count 5.2 X10^3/uL (2.0-7.7); Basophil# 0.08 X10^3/uL; Eosinophil# 0.37 X10^3/uL; Eosinophils% 4.7 % (0-5); Hematocrit 31.9 % (37-47); Lymphocyte # 1.55 X10^3/ul (0.83-4.51); Lymphocyte % 19.7 % (19-41); Mean Corp Hgb Conc 31.3 g/dL (32-36); Mean Corpuscular Hgb 28.8 pg (27.0-32.0); Mean Corpuscular Volume 91.9 fL (81-99); Mean Platelet Vol. 10.5 fl (6.2-12.0); Monocyte# 0.61 X10^3/uL; Monocyte% 7.8 % (0-10); NRBC Flagged by Analyzer 0 % (0-5); Neutrophil # 5.21 X10^3/uL (2.7-7.7); Neutrophil % 66.2 % (47-70); Platelet Count 267 K/mm3 (150-450); RBC Distribution Width CV 14.9 % (11.6-14.6); RBC Distribution Width SD 50.3 fl (35.1-43.9); Red Blood Count 3.47 M/mm3 (4.2-5.4); White Blood Count 7.9 K/mm3 (4.4-11.0)
[2023-08-13 08:27] LABS: Anion Gap 6 (5-15); BUN 14 mg/dL (7-18); BUN/Creat Ratio 14.1 RATIO (10-20); Calcium,Total 9.4 mg/dL (8.5-10.1); Chloride 113 mmol/L (98-107); Creatinine, Serum 0.99 mg/dL (0.55-1.02); EST Glomerular Filtration Rate 57 mL/min (>60); Est Glom Filt Rate - Afr Amer 69 mL/min (>60); Estimated Creatinine Clearance 33.46 ml/min; Glucose 90 mg/dL (74-106); Potassium 2.9 mmol/L (3.5-5.1); Sodium Level 141 mmol/L (136-145)
[2023-08-13] MEDS: Tolterodine Tartrate 4 MG CAP.SA PO (08:31)
[2023-08-13] MEDS: Ensure Clear 120 ML Liquid PO ×2 (08:31→12:43)
--- NOTE | 2023-08-13 08:54 | PCM.PN.SRG ---
Subjective Subjective Patient started on clears last night. No nausea or vomiting denies abdominal pain Objective Data Objective Data Vital Signs: Vital Signs Temp Pulse Resp BP Pulse Ox O2 Del Method O2 Flow Rate 97.2 F L 78 12 105/92 H 96 Nasal Cannula 3 08/13/23 08:22 08/13/23 08:22 08/13/23 08:22 08/13/23 08:22 08/13/23 08:22 08/13/23 08:22 08/13/23 08:22 Oxygen Flow Rate (L/min) 3 Oxygen Delivery Method Nasal Cannula Weight: 176 lb 12.972 oz Body Mass Index (BMI) 32.3 Intake & Output: Intake and Output for Last 24 Hours 08/11/23 08/12/23 08/13/23 23:59 23:59 23:59 Intake Total 1648.92 / 1648.92 1073.33 / 1078.33 916.25 / 916.25 Output Total 800 / 950 1150 / 1150 250 / 250 Balance 848.92 / 698.92 -76.67 / -71.67 666.25 / 666.25 Lab / Micro Data 08/13/23 05:08 08/13/23 05:08 Labs: Laboratory Results - last 24 hr 08/12/23 07:45: TSH 2.59 08/12/23 14:45: Hgb 11.0 L 08/13/23 05:08: WBC 7.9, RBC 3.47 L, Hgb 10.0 L, Hct 31.9 L, MCV 91.9, MCH 28.8, MCHC 31.3 L, RDW Std Deviation 50.3 H, RDW Coeff of Kwame 14.9 H, Plt Count 267, MPV 10.5, Immature Gran % (Auto) 0.600, Neut % (Auto) 66.2, Lymph % (Auto) 19.7, [place] % (Auto) 7.8, Eos % (Auto) 4.7, Baso % (Auto) 1.0, Absolute Neuts (auto) 5.2, Absolute Lymphs (auto) 1.55, Nucleated RBC % 0, Sodium 141, Potassium 2.9 L, Chloride 113 H, Carbon Dioxide 22.0, Anion Gap 6, BUN 14, Creatinine 0.99, Estim Creat Clear Calc 33.46, Est GFR (MDRD) Af Amer 69, Est GFR (MDRD) Non-Af 57 L, BUN/Creatinine Ratio 14.1, Glucose 90, Calcium 9.4 Radiography Diagnostic Testing: Radiology Impression Echocardiogram 08/12/23 08:33 Interpretation Summary Normal LV size. Left ventricular systolic function is normal. The estimated ejection fraction is 60 %. Stage 1 diastolic dysfunction. Mild concentric left ventricular hypertrophy. Ordering Physician: Annie Barrera Referring Physician: Snow Maria M.D. Performed By: Shanti Vargas RCS Rhythm Strip Rhythm Strip: Sinus Rhythm Rate: 82 Ectopy: None Physical Exam Const oriented x3 and no apparent distress Resp normal respiratory effort GI soft to palpation GI Narrative: Incisions clean dry and intact with OpSite's Palpation: tender other (Appropriately tender near incisions) Assessment & Plan Assessment/Plan (1) S/P laparoscopic cholecystectomy: (2) Acute cholecystitis: (3) Paroxysmal atrial fibrillation with RVR: PLAN: Plan Will continue clears today as she does not start until last night. Hemoglobin stable at 10?was 11 yesterday but do think that was a false value. Will plan to restart her Eliquangelito tonrosy. Appreciate the hospitalist assistance. Anabelle Schwartz M.D. Pager: [phone] [facility] [address] [place] [address], [facility], [address] [place] [address] Office: [phone]
--- NOTE | 2023-08-13 09:06 | CASEMGMT ---
Social Work SW spoke w/physician, pt is not going to be discharged this weekend. SW spoke w/son Amos via telephone. SW inquired w/him if he and pt's are still wanting pt to go back to [place], or if they wanted to consider pt going to a retirement facility for rehab. Son states returning to [place] would be ideal. He states he spoke w/[place] and they stated they were fine w/pt returning. SW will continue to follow for pt's return to [place] when ready. Green sheet not placed on chart as pt will not be leaving on the weekend. RINKU Resendiz
--- NOTE | 2023-08-13 13:39 | PN.HOSP_ITS ---
Reason for Visit Reason for Visit: Right upper quadrant pain Subjective Subjective Patient did have some paroxysmal atrial fibrillation last night as well. Has currently reconverted to normal sinus rhythm. Transition from oral metoprolol to Cardizem now that we know she has a normal EF. No issues at this time. Per surgery's note plan on restarting Eliquis tonight. I do suspect she has paroxysmal atrial fibrillation at baseline that just has not yet been diagnosed. Objective Data Objective Data Vital Signs: Vital Signs Temp Pulse Resp BP Pulse Ox O2 Del Method O2 Flow Rate 97.2 F L 78 12 105/92 H 96 Nasal Cannula 3 08/13/23 08:22 08/13/23 08:22 08/13/23 08:22 08/13/23 08:22 08/13/23 08:22 08/13/23 08:22 08/13/23 10:24 Oxygen Flow Rate (L/min) 3 Oxygen Delivery Method Nasal Cannula Weight: 80.2 kg Body Mass Index (BMI) 32.3 Intake & Output: Intake and Output for Last 24 Hours 08/11/23 08/12/23 08/13/23 23:59 23:59 23:59 Intake Total 1648.92 / 1648.92 1073.33 / 1078.33 1016.25 / 1016.25 Output Total 800 / 950 1150 / 1150 250 / 250 Balance 848.92 / 698.92 -76.67 / -71.67 766.25 / 766.25 Lab / Micro Data 08/13/23 05:08 08/13/23 05:08 Labs: Laboratory Results - last 24 hr 08/12/23 14:45: Hgb 11.0 L 08/13/23 05:08: WBC 7.9, RBC 3.47 L, Hgb 10.0 L, Hct 31.9 L, MCV 91.9, MCH 28.8, MCHC 31.3 L, RDW Std Deviation 50.3 H, RDW Coeff of Kwame 14.9 H, Plt Count 267, MPV 10.5, Immature Gran % (Auto) 0.600, Neut % (Auto) 66.2, Lymph % (Auto) 19.7, [place] % (Auto) 7.8, Eos % (Auto) 4.7, Baso % (Auto) 1.0, Absolute Neuts (auto) 5.2, Absolute Lymphs (auto) 1.55, Nucleated RBC % 0, Sodium 141, Potassium 2.9 L , Chloride 113 H, Carbon Dioxide 22.0, Anion Gap 6, BUN 14, Creatinine 0.99, Estim Creat Clear Calc 33.46, Est GFR (MDRD) Af Amer 69, Est GFR (MDRD) Non-Af 57 L, BUN/Creatinine Ratio 14.1, Glucose 90, Calcium 9.4 Rhythm Strip Rhythm Strip: Sinus Rhythm Rate: 82 Ectopy: None Physical Exam Const alert and no apparent distress; Negative for average body habitus Constitutional Narrative: Obese, elderly female, chronically ill-appearing, moderately fatigued and debilitated, laying comfortably in bed, no acute distress, family at bedside HEENT normocephalic, head/scalp atraumatic, hearing grossly normal bilaterally and moist oral mucous membranes Resp normal respiratory effort, no retractions, no use of accessory muscles and clear to auscultation bilaterally Resp Narrative: Decreased at bases bilaterally Auscultation: Negative for rales, rhonchi or wheezes Cardio regular rate, regular rhythm, S1 normal heart sound, S2 normal heart sound, no murmurs, no rub, no gallops and no clicks GI normal to inspection, nondistended, normoactive bowel sounds and soft to palpation GI Narrative: Mild tenderness at the portal but otherwise benign Extremity no clubbing, cyanosis or edema Extremity Narrative: Decreased lean muscle mass Neuro oriented x3, moves all extremities and no focal motor deficits Neuro Narrative: Severe generalized debility proximal greater than distal and lower extremities more affected than upper Psych Psych Narrative: Affect is flat and mood seems somewhat depressed Assessment & Plan Assessment/Plan (1) Paroxysmal atrial fibrillation with RVR: (2) Acute cholecystitis: (3) Abdominal pain: (4) Debility: (5) Dysphagia: PLAN: Plan Atrial fibrillation/flutter with RVR -Appears to be paroxysmal and I would not be surprised if patient has this at baseline -Beta-renetta was transitioned to Cardizem 30 every 6 -[id number] score is 3--> plan is to restart Eliquis tonight -Echocardiogram showed an EF of 60% with stage I diastolic dysfunction and mild concentric LVH but no valvular abnormalities and atrium were normal bilaterally. -TSH is within normal limits -Will recommend outpatient cardiology follow-up after discharge Acute cholecystitis -Postop day 3 -Management per primary service -Continue clear liquid diet and advance per general surgery recommendations Debility -PT/OT following -Case management/social work following and patient currently resides at [facility] where she receives quite a bit of assistance and they feel comfortable taking her back as long as family is agreeable Dysphagia -Patient with some coughing after eating -Concerning for swallowing difficulties -Speech therapy following and cleared for clear liquid diet with one-on-one supervision's, liquids by straws and meds crushed in applesauce Acute anemia -Hemoglobin is stable at 10 -Continue home iron supplementation -Baseline hemoglobin appears to run between 12 and 13 History of DVT -Plan for general surgery to restart apixaban this evening CKD stage III A -Baseline serum creatinine appears to run between 1.0 and 1.2 -Current serum creatinine 0.99 -Continue to monitor -IV fluids per primary service Hypothyroidism -Continue home levothyroxine Urinary incontinence -Continue home oxybutynin Bilateral visual impairment -Chronic stable DVT prophylaxis -Per primary service -Plan is to restart Eliquis this evening Charges/Coding Visit Charges Inpatient E&M: 02516 Subs Hosp L2
[2023-08-13] MEDS: APIXABAN 5 MG TABLET PO (21:37)
[2023-08-13] MEDS: Potassium Chloride Oral Tablet 20 MEQ 40 MEQ PO (23:06)
[2023-08-14] VITALS (8 sets, daily range): BP systolic 120–165; BP diastolic 56–99; PULSE 81–90; RESP 19–22; TEMP 36.4–36.8; O2SAT 90–97
[2023-08-14] MEDS: 0.9% Normal Saline (1000mL) 1,000 ML 50 ML IV ×2 (02:54→21:16)
[2023-08-14] MEDS: Nystatin Powder 15gm Bottle 1 APPLIC TOPICAL ×3 (05:13→21:15)
[2023-08-14] MEDS: dilTIAZem 30 MG Tablet PO ×3 (05:13→17:46)
[2023-08-14] MEDS: Levothyroxine 125 MCG Tablet PO (05:13)
[2023-08-14] MEDS: Menthol/Lanolin/Calamine/Znox 113 GM Tube 1 APPLIC TOPICAL ×3 (05:13→21:14)
[2023-08-14 07:16] LABS: Absolute Lymphocyte Count 1.49 X10^3/uL (0.83-4.51); Absolute Neutrophil Count 4.4 X10^3/uL (2.0-7.7); Basophil# 0.07 X10^3/uL; Eosinophil# 0.29 X10^3/uL; Eosinophils% 4.2 % (0-5); Hematocrit 33.2 % (37-47); Hemoglobin 10.8 g/dL (12.0-15.0); Lymphocyte # 1.49 X10^3/ul (0.83-4.51); Lymphocyte % 21.7 % (19-41); Mean Corp Hgb Conc 32.5 g/dL (32-36); Mean Corpuscular Hgb 29.1 pg (27.0-32.0); Mean Corpuscular Volume 89.5 fL (81-99); Mean Platelet Vol. 10.2 fl (6.2-12.0); Monocyte# 0.52 X10^3/uL; Monocyte% 7.6 % (0-10); NRBC Flagged by Analyzer 0 % (0-5); Neutrophil # 4.38 X10^3/uL (2.7-7.7); Neutrophil % 63.9 % (47-70); Platelet Count 290 K/mm3 (150-450); RBC Distribution Width CV 14.7 % (11.6-14.6); RBC Distribution Width SD 47.8 fl (35.1-43.9); Red Blood Count 3.71 M/mm3 (4.2-5.4); White Blood Count 6.9 K/mm3 (4.4-11.0)
[2023-08-14 08:12] LABS: Anion Gap 8 (5-15); BUN 9 mg/dL (7-18); BUN/Creat Ratio 10.9 RATIO (10-20); Calcium,Total 9.3 mg/dL (8.5-10.1); Chloride 110 mmol/L (98-107); Creatinine, Serum 0.83 mg/dL (0.55-1.02); EST Glomerular Filtration Rate 70 mL/min (>60); Est Glom Filt Rate - Afr Amer 84 mL/min (>60); Estimated Creatinine Clearance 39.91 ml/min; Glucose 86 mg/dL (74-106); Magnesium 1.9 mg/dL (1.6-2.6); Potassium 2.7 mmol/L (3.5-5.1); Sodium Level 142 mmol/L (136-145)
--- NOTE | 2023-08-14 08:59 | PCM.PN.SRG ---
Subjective Subjective Patient tolerated clears will advance to full's then regular if tolerates? Restarted Eliquis overnight. Hypokalemia?replaced Objective Data Objective Data Vital Signs: Vital Signs Temp Pulse Resp BP Pulse Ox O2 Del Method O2 Flow Rate 97.8 F 90 19 H 150/99 H 94 Nasal Cannula 3 08/14/23 05:16 08/14/23 05:16 08/14/23 05:16 08/14/23 06:28 08/14/23 07:12 08/14/23 07:12 08/14/23 07:12 Oxygen Flow Rate (L/min) 3 Oxygen Delivery Method Nasal Cannula Weight: 176 lb 12.972 oz Body Mass Index (BMI) 32.3 Intake & Output: Intake and Output for Last 24 Hours 08/12/23 08/13/23 08/14/23 23:59 23:59 23:59 Intake Total 1073.33 / 1078.33 1116.25 / 1116.25 1000 / 1000 Output Total 1150 / 1150 1050 / 1050 900 / 900 Balance -76.67 / -71.67 66.25 / 66.25 100 / 100 Lab / Micro Data 08/14/23 05:27 08/14/23 05:27 Labs: Laboratory Results - last 24 hr 08/14/23 05:27: WBC 6.9, RBC 3.71 L, Hgb 10.8 L, Hct 33.2 L, MCV 89.5, MCH 29.1, MCHC 32.5, RDW Std Deviation 47.8 H, RDW Coeff of Kwame 14.7 H, Plt Count 290, MPV 10.2, Immature Gran % (Auto) 1.600 H, Neut % (Auto) 63.9, Lymph % (Auto) 21.7, [place] % (Auto) 7.6, Eos % (Auto) 4.2, Baso % (Auto) 1.0, Absolute Neuts (auto) 4.4, Absolute Lymphs (auto) 1.49, Nucleated RBC % 0, Sodium 142, Potassium 2.7 L*, Chloride 110 H, Carbon Dioxide 24.0, Anion Gap 8, BUN 9, Creatinine 0.83, Estim Creat Clear Calc 39.91, Est GFR (MDRD) Af Amer 84, Est GFR (MDRD) Non-Af 70, BUN/Creatinine Ratio 10.9, Glucose 86, Calcium 9.3, Magnesium 1.9 Rhythm Strip Rhythm Strip: Sinus Rhythm Rate: 82 Ectopy: None Physical Exam Const oriented x3 and no apparent distress Resp normal respiratory effort GI soft to palpation GI Narrative: Incisions clean dry and intact with OpSite's Palpation: tender other (Appropriately tender near incisions) Assessment & Plan Assessment/Plan (1) S/P laparoscopic cholecystectomy: (2) Acute cholecystitis: (3) Paroxysmal atrial fibrillation with RVR: PLAN: Plan Advance to full's then regular if tolerates. Hemoglobin stable Home Eliquis restarted Hypokalemia replace?will recheck K at 3 PM. Appreciate the hospitalist assistance. Anabelle Schwartz M.D. Pager: [phone] [facility] [address] [place] [address], [address] [place] [address] Office: [phone]
[2023-08-14] MEDS: Ensure Clear 120 ML Liquid PO ×2 (09:47→12:17)
[2023-08-14] MEDS: Potassium Chloride Oral Soln 20 MEQ/15 ML UDC 80 MEQ PO (09:49)
[2023-08-14] MEDS: Tolterodine Tartrate 4 MG CAP.SA PO (09:50)
[2023-08-14] MEDS: APIXABAN 5 MG TABLET PO ×2 (09:50→21:15)
--- NOTE | 2023-08-14 13:21 | PN.HOSP_ITS ---
Reason for Visit Reason for Visit: Cholecystitis Subjective Subjective No recurrent atrial fibrillation overnight and heart rates appear to be controlled. Eliquis was restarted. Still no bowel movements or significant flatus. On clear liquid diet. Objective Data Objective Data Vital Signs: Vital Signs Temp Pulse Resp BP Pulse Ox O2 Del Method O2 Flow Rate 97.6 F L 90 22 H 120/56 L 90 Room Air 2 08/14/23 11:00 08/14/23 11:00 08/14/23 11:00 08/14/23 11:00 08/14/23 11:00 08/14/23 11:00 08/14/23 09:47 Oxygen Flow Rate (L/min) 2 Oxygen Delivery Method Room Air Weight: 80.2 kg Body Mass Index (BMI) 32.3 Intake & Output: Intake and Output for Last 24 Hours 08/12/23 08/13/23 08/14/23 23:59 23:59 23:59 Intake Total 1073.33 / 1078.33 1116.25 / 1116.25 1120 / 1120 Output Total 1150 / 1150 1050 / 1050 900 / 900 Balance -76.67 / -71.67 66.25 / 66.25 220 / 220 Lab / Micro Data 08/14/23 05:27 08/14/23 05:27 Labs: Laboratory Results - last 24 hr 08/14/23 05:27: WBC 6.9, RBC 3.71 L, Hgb 10.8 L, Hct 33.2 L, MCV 89.5, MCH 29.1, MCHC 32.5, RDW Std Deviation 47.8 H, RDW Coeff of [place] 14.7 H, Plt Count 290, MPV 10.2, Immature Gran % (Auto) 1.600 H, Neut % (Auto) 63.9, Lymph % (Auto) 21.7, [place] % (Auto) 7.6, Eos % (Auto) 4.2, Baso % (Auto) 1.0, Absolute Neuts (auto) 4.4, Absolute Lymphs (auto) 1.49, Nucleated RBC % 0, Sodium 142, Potassium 2.7 L*, Chloride 110 H, Carbon Dioxide 24.0, Anion Gap 8, BUN 9, Creatinine 0.83, Estim Creat Clear Calc 39.91, Est GFR (MDRD) Af Amer 84, Est GFR (MDRD) Non-Af 70, BUN/Creatinine Ratio 10.9, Glucose 86, Calcium 9.3, Magnesium 1.9 Rhythm Strip Rhythm Strip: Sinus Rhythm Rate: 82 Ectopy: None Physical Exam Const alert and no apparent distress; Negative for average body habitus Constitutional Narrative: Obese, elderly female, chronically ill-appearing, moderately fatigued and debilitated, laying comfortably in bed, no acute distress, nursing at bedside dosing potassium HEENT normocephalic, head/scalp atraumatic, hearing grossly normal bilaterally and moist oral mucous membranes Resp normal respiratory effort, no retractions, no use of accessory muscles and clear to auscultation bilaterally Resp Narrative: Decreased at bases bilaterally Auscultation: Negative for rales, rhonchi or wheezes Cardio regular rate, regular rhythm, S1 normal heart sound, S2 normal heart sound, no murmurs, no rub, no gallops and no clicks GI soft to palpation, non-tender and non-distended GI Narrative: Mild tenderness at the portal but otherwise benign, bowel sounds are hypoactive but present Extremity no clubbing, cyanosis or edema Extremity Narrative: Decreased lean muscle mass Neuro oriented x3, moves all extremities and no focal motor deficits Neuro Narrative: Severe generalized debility proximal greater than distal and lower extremities more affected than upper Psych Psych Narrative: Affect is flat and mood seems somewhat depressed Assessment & Plan Assessment/Plan (1) Paroxysmal atrial fibrillation with RVR: (2) Acute cholecystitis: (3) Abdominal pain: (4) Debility: (5) Dysphagia: (6) Hypokalemia: PLAN: Plan Atrial fibrillation/flutter with RVR -Appears to be paroxysmal and I would not be surprised if patient has this at baseline -Remains in normal sinus rhythm -Continue Cardizem 30 mg every 6 hours -Continue Eliquis -[id number] score is 3 -Echocardiogram showed an EF of 60% with stage I diastolic dysfunction and mild concentric LVH but no valvular abnormalities and atrium were normal bilaterally. -TSH is within normal limits -Will recommend outpatient cardiology follow-up after discharge Hypokalemia -Magnesium is within normal limits -Replaced orally -Recheck in a.m. Acute cholecystitis -Postop day 4 -On clear liquid diet awaiting return of bowel function -Advance per general surgery -Continue IV fluids per primary service -Management per primary service -Continue clear liquid diet and advance per general surgery recommendations Debility -PT/OT following -Case management/social work following and patient currently resides at [facility] where she receives quite a bit of assistance and they feel comfortable taking her back as long as family is agreeable Dysphagia -Patient with some coughing after eating -Concerning for swallowing difficulties -Speech therapy following and cleared for clear liquid diet with one-on-one supervision's, liquids by straws and meds crushed in applesauce Acute anemia -Hemoglobin is stable at 10 -Continue home iron supplementation -Baseline hemoglobin appears to run between 12 and 13 History of DVT -Plan for general surgery to restart apixaban this evening CKD stage III A -Baseline serum creatinine appears to run between 1.0 and 1.2 -Current serum creatinine 0.83 -Continue to monitor -IV fluids per primary service Hypothyroidism -Continue home levothyroxine Urinary incontinence -Continue home oxybutynin Bilateral visual impairment -Chronic stable DVT prophylaxis -Continue Eliquis Charges/Coding Visit Charges Inpatient E&M: 17303 Subs Hosp L2
--- NOTE | 2023-08-14 13:51 | PN.HOSP_ITS ---
Reason for Visit Reason for Visit: Diagnoses Hypokalemia (08/08/23) Paroxysmal atrial fibrillation (08/08/23) Acute cholecystitis (08/08/23) Unspecified abdominal pain (08/08/23) Dysphagia, unspecified (08/08/23) Other malaise (08/08/23) Acquired absence of other specified parts of digestive tract (08/08/23) Objective Data Objective Data Vital Signs: Vital Signs Temp Pulse Resp BP Pulse Ox O2 Del Method O2 Flow Rate 97.6 F L 90 22 H 120/56 L 97 Room Air 3 08/14/23 11:00 08/14/23 11:00 08/14/23 11:00 08/14/23 11:00 08/14/23 13:21 08/14/23 11:00 08/14/23 13:21 Oxygen Flow Rate (L/min) 3 Oxygen Delivery Method Room Air Weight: 80.2 kg Body Mass Index (BMI) 32.3 Intake & Output: Intake and Output for Last 24 Hours 08/12/23 08/13/23 08/14/23 23:59 23:59 23:59 Intake Total 1073.33 / 1078.33 1116.25 / 1116.25 1120 / 1120 Output Total 1150 / 1150 1050 / 1050 900 / 900 Balance -76.67 / -71.67 66.25 / 66.25 220 / 220 Lab / Micro Data 08/14/23 05:27 08/14/23 05:27 Labs: Laboratory Results - last 24 hr 08/14/23 05:27: WBC 6.9, RBC 3.71 L, Hgb 10.8 L, Hct 33.2 L, MCV 89.5, MCH 29.1, MCHC 32.5, RDW Std Deviation 47.8 H, RDW Coeff of Kwame 14.7 H, Plt Count 290, MPV 10.2, Immature Gran % (Auto) 1.600 H, Neut % (Auto) 63.9, Lymph % (Auto) 21.7, [place] % (Auto) 7.6, Eos % (Auto) 4.2, Baso % (Auto) 1.0, Absolute Neuts (auto) 4.4, Absolute Lymphs (auto) 1.49, Nucleated RBC % 0, Sodium 142, Potassium 2.7 L*, Chloride 110 H, Carbon Dioxide 24.0, Anion Gap 8, BUN 9, Creatinine 0.83, Estim Creat Clear Calc 39.91, Est GFR (MDRD) Af Amer 84, Est GFR (MDRD) Non-Af 70, BUN/Creatinine Ratio 10.9, Glucose 86, Calcium 9.3, Magnesium 1.9 Rhythm Strip Rhythm Strip: Sinus Rhythm Rate: 82 Ectopy: None
--- NOTE | 2023-08-14 13:51 | PCM.DC.SUM ---
Providers Date of Admission: 08/08/23 Date of Discharge: 08/14/23 Primary Care Physician: Dr. Snow Maria MD Reason For Visit: CHOLELITHIASIS Diagnosis Discharge Diagnosis (1) Paroxysmal atrial fibrillation with RVR: Status: Acute Code(s): I48.0 - Paroxysmal atrial fibrillation (2) Acute cholecystitis: Status: Acute Code(s): K81.0 - Acute cholecystitis (3) Abdominal pain: Status: Acute Code(s): R10.9 - Unspecified abdominal pain (4) Debility: Status: Acute Code(s): R53.81 - Other malaise (5) Dysphagia: Status: Acute Code(s): R13.10 - Dysphagia, unspecified (6) Hypokalemia: Status: Acute Code(s): E87.6 - Hypokalemia Plan Atrial fibrillation/flutter with RVR -Appears to be paroxysmal and I would not be surprised if patient has this at baseline -Remains in normal sinus rhythm -Continue Cardizem 30 mg every 6 hours -Continue Eliquis -[id number] score is 3 -Echocardiogram showed an EF of 60% with stage I diastolic dysfunction and mild concentric LVH but no valvular abnormalities and atrium were normal bilaterally. -TSH is within normal limits -Will recommend outpatient cardiology follow-up after discharge Hypokalemia -Magnesium is within normal limits -Replaced orally -Recheck in a.m. Acute cholecystitis -Postop day 4 -On clear liquid diet awaiting return of bowel function -Advance per general surgery -Continue IV fluids per primary service -Management per primary service -Continue clear liquid diet and advance per general surgery recommendations Debility -PT/OT following -Case management/social work following and patient currently resides at [facility] where she receives quite a bit of assistance and they feel comfortable taking her back as long as family is agreeable Dysphagia -Patient with some coughing after eating -Concerning for swallowing difficulties -Speech therapy following and cleared for clear liquid diet with one-on-one supervision's, liquids by straws and meds crushed in applesauce Acute anemia -Hemoglobin is stable at 10 -Continue home iron supplementation -Baseline hemoglobin appears to run between 12 and 13 History of DVT -Plan for general surgery to restart apixaban this evening CKD stage III A -Baseline serum creatinine appears to run between 1.0 and 1.2 -Current serum creatinine 0.83 -Continue to monitor -IV fluids per primary service Hypothyroidism -Continue home levothyroxine Urinary incontinence -Continue home oxybutynin Bilateral visual impairment -Chronic stable DVT prophylaxis -Continue Eliquis Medications at Discharge Home Medications apixaban 5 mg tablet (Eliquis) 5 mg PO BID anticoagulant 08/08/23 ferrous sulfate 325 mg (65 mg iron) tablet (Feosol) 325 mg PO DAILY supplement 08/08/23 levothyroxine 125 mcg tablet 125 mcg PO DAILY thyrroid 08/08/23 oxybutynin chloride 15 mg tablet,extended release 24 hr 15 mg PO DAILY incontinence 08/08/23 Hospital Course Operations None Weight / BMI Weight Weight: 80.2 kg Body Mass Index (BMI) 32.3 ABG / Lab / Microbiology Data 08/14/23 05:27 08/14/23 05:27 Laboratory: Laboratory Results - last 24 hr 08/14/23 05:27: WBC 6.9, RBC 3.71 L, Hgb 10.8 L, Hct 33.2 L, MCV 89.5, MCH 29.1, MCHC 32.5, RDW Std Deviation 47.8 H, RDW Coeff of Kwame 14.7 H, Plt Count 290, MPV 10.2, Immature Gran % (Auto) 1.600 H, Neut % (Auto) 63.9, Lymph % (Auto) 21.7, [place] % (Auto) 7.6, Eos % (Auto) 4.2, Baso % (Auto) 1.0, Absolute Neuts (auto) 4.4, Absolute Lymphs (auto) 1.49, Nucleated RBC % 0, Sodium 142, Potassium 2.7 L*, Chloride 110 H, Carbon Dioxide 24.0, Anion Gap 8, BUN 9, Creatinine 0.83, Estim Creat Clear Calc 39.91, Est GFR (MDRD) Af Amer 84, Est GFR (MDRD) Non-Af 70, BUN/Creatinine Ratio 10.9, Glucose 86, Calcium 9.3, Magnesium 1.9 Meaningful Use Info Meaningful Use Diagnoses (Choose all that apply): None applicable Discharge Plan Admission Admit Date/Time: 08/08/23 22:00 Primary Reason for Your Visit: Abdominal pain Attending Provider: Naveed Richter Primary Care Provider: Snow Maria Discharge Orders/Prescriptions Prescriptions: No Action Eliquis 5 mg tablet 5 mg PO BID ferrous sulfate [Feosol] 325 mg (65 mg iron) tablet 325 mg PO DAILY levothyroxine 125 mcg tablet 125 mcg PO DAILY oxybutynin chloride 15 mg tablet extended release 24hr 15 mg PO DAILY Referrals / Follow Up: Snow Maria MD [[facility]] - Snow Maria MD [Primary Care Provider] - Disposition Disposition (needs filled in before D/C Order can be placed): Acute Care Hospital Charges/Coding Visit Charges Inpatient E&M: 35165 Disch Hosp
[2023-08-14 15:32] LABS: Potassium 3.6 mmol/L (3.5-5.1)
[2023-08-14] MEDS: Docusate Sodium 100 MG/10 ML UDC PO (21:14)
[2023-08-15] VITALS (14 sets, daily range): BP systolic 113–159; BP diastolic 72–117; PULSE 80–137; RESP 16–20; TEMP 36.4–36.9; O2SAT 88–95
[2023-08-15] MEDS: dilTIAZem 30 MG Tablet PO ×4 (00:53→17:42)
[2023-08-15] MEDS: Levothyroxine 125 MCG Tablet PO (06:12)
[2023-08-15] MEDS: Nystatin Powder 15gm Bottle 1 APPLIC TOPICAL ×3 (06:13→20:43)
[2023-08-15] MEDS: Menthol/Lanolin/Calamine/Znox 113 GM Tube 1 APPLIC TOPICAL ×3 (06:13→20:42)
[2023-08-15 06:40] LABS: Absolute Lymphocyte Count 1.77 X10^3/uL (0.83-4.51); Basophil# 0.09 X10^3/uL; Basophil% 1.1 % (0-1); Eosinophil# 0.43 X10^3/uL; Eosinophils% 5.3 % (0-5); Hematocrit 31.8 % (37-47); Hemoglobin 10.1 g/dL (12.0-15.0); Lymphocyte # 1.77 X10^3/ul (0.83-4.51); Lymphocyte % 21.8 % (19-41); Mean Corp Hgb Conc 31.8 g/dL (32-36); Mean Corpuscular Hgb 28.2 pg (27.0-32.0); Mean Corpuscular Volume 88.8 fL (81-99); Mean Platelet Vol. 9.7 fl (6.2-12.0); Monocyte# 0.66 X10^3/uL; Monocyte% 8.1 % (0-10); NRBC Flagged by Analyzer 0 % (0-5); Neutrophil # 5.03 X10^3/uL (2.7-7.7); Platelet Count 290 K/mm3 (150-450); RBC Distribution Width CV 14.7 % (11.6-14.6); RBC Distribution Width SD 47.5 fl (35.1-43.9); Red Blood Count 3.58 M/mm3 (4.2-5.4); White Blood Count 8.1 K/mm3 (4.4-11.0)
[2023-08-15 07:16] LABS: Anion Gap 5 (5-15); BUN 8 mg/dL (7-18); BUN/Creat Ratio 10.6 RATIO (10-20); Calcium,Total 9.3 mg/dL (8.5-10.1); Chloride 110 mmol/L (98-107); Creatinine, Serum 0.76 mg/dL (0.55-1.02); EST Glomerular Filtration Rate 77 mL/min (>60); Est Glom Filt Rate - Afr Amer 94 mL/min (>60); Estimated Creatinine Clearance 33.12 ml/min; Glucose 92 mg/dL (74-106); Potassium 3.2 mmol/L (3.5-5.1); Sodium Level 142 mmol/L (136-145)
--- NOTE | 2023-08-15 09:15 | PCM.PN.SRG ---
Subjective Subjective Patient appears more comfortable today than she did when I left on Tuesday. Objective Data Objective Data Vital Signs: Vital Signs Temp Pulse Resp BP Pulse Ox O2 Del Method O2 Flow Rate 97.6 F L 86 20 H 138/84 H 94 Nasal Cannula 3 08/15/23 03:22 08/15/23 03:22 08/15/23 03:22 08/15/23 03:22 08/15/23 08:36 08/15/23 08:36 08/15/23 08:36 Oxygen Flow Rate (L/min) 3 Oxygen Delivery Method Nasal Cannula Weight: 176 lb 12.972 oz Body Mass Index (BMI) 32.3 Intake & Output: Intake and Output for Last 24 Hours 08/13/23 08/14/23 08/15/23 23:59 23:59 23:59 Intake Total 1116.25 / 1116.25 2168.33 / 2168.33 Output Total 1050 / 1050 1350 / 1350 700 / 700 Balance 66.25 / 66.25 818.33 / 818.33 -700 / -700 Lab / Micro Data 08/15/23 06:00 08/15/23 06:00 Labs: Laboratory Results - last 24 hr 08/14/23 15:00: Potassium 3.6 08/15/23 06:00: WBC 8.1, RBC 3.58 L, Hgb 10.1 L, Hct 31.8 L, MCV 88.8, MCH 28.2, MCHC 31.8 L, RDW Std Deviation 47.5 H, RDW Coeff of Kwame 14.7 H, Plt Count 290, MPV 9.7, Immature Gran % (Auto) 1.700 H, Neut % (Auto) 62.0, Lymph % (Auto) 21.8, [place] % (Auto) 8.1, Eos % (Auto) 5.3 H, Baso % (Auto) 1.1 H, Absolute Neuts (auto) 5.0, Absolute Lymphs (auto) 1.77, Nucleated RBC % 0, Sodium 142, Potassium 3.2 L, Chloride 110 H, Carbon Dioxide 27.0, Anion Gap 5, BUN 8, Creatinine 0.76, Estim Creat Clear Calc 33.12, Est GFR (MDRD) Af Amer 94, Est GFR (MDRD) Non-Af 77, BUN/Creatinine Ratio 10.6, Glucose 92, Calcium 9.3 Rhythm Strip Rhythm Strip: Sinus Rhythm Rate: 82 Ectopy: None Physical Exam Const oriented x3 and no apparent distress Resp normal respiratory effort GI soft to palpation Palpation: tender Assessment & Plan Assessment/Plan (1) Acute cholecystitis: PLAN: The patient was having urinary retention at the end of last week. I will remove her Serrato and do a voiding trial today. The patient is tolerating full liquids. I am awaiting speech to see if she can advance her diet. PT and OT is seeing her as well. Hopeful for discharge today or tomorrow back to her halfway. She has been resumed on her blood thinners. Naveed Rcihter MD Pager: [facility] [address] [place] [address], [address] [place] [address] Office:
[2023-08-15] MEDS: 0.9% Saline Lock 10 ML Syringe IV ×4 (09:27→19:31)
[2023-08-15] MEDS: APIXABAN 5 MG TABLET PO ×2 (09:27→20:42)
[2023-08-15] MEDS: Docusate Sodium 100 MG/10 ML UDC PO ×2 (09:28→20:42)
[2023-08-15] MEDS: Ensure Clear 120 ML Liquid PO (09:28)
[2023-08-15] MEDS: Potassium Chloride Oral Soln 20 MEQ/15 ML UDC 60 MEQ PO (09:28)
--- NOTE | 2023-08-15 09:45 | CASEMGMT ---
Discharge Planning Updates faxed to Elsa. Briseyda Anderson, Discharge Planning Asst.
--- NOTE | 2023-08-15 11:35 | DS.PCM_ITS ---
Providers Date of Admission: 08/08/23 Date of Discharge: 08/16/23 Primary Care Physician: Dr. Snow Maria MD Reason For Visit: CHOLELITHIASIS Diagnosis Discharge Diagnosis (1) Acute cholecystitis: Status: Acute Code(s): K81.0 - Acute cholecystitis Medications at Discharge Home Medications apixaban 5 mg tablet (Eliquis) 5 mg PO BID anticoagulant 08/08/23 ferrous sulfate 325 mg (65 mg iron) tablet (Feosol) 325 mg PO DAILY supplement 08/08/23 levothyroxine 125 mcg tablet 125 mcg PO DAILY thyrroid 08/08/23 oxybutynin chloride 15 mg tablet,extended release 24 hr 15 mg PO DAILY inco ntinence 08/08/23 diltiazem HCl 30 mg tablet 30 mg PO Q6 #0 tabs 08/15/23 digoxin 125 mcg (0.125 mg) tablet 125 mcg PO DAILY #0 tabs 08/16/23 Hospital Course Operations - (Laparoscopic cholecystectomy with cholangiogram, 08/10) Summary of Care Provided Minutes Spent on Discharge: 40 Hospital Course: Patient is an 82 y/o F who presented to the ED with sudden onset of abdominal pain, nausea, vomiting. CT scan of abdomen/pelvis was obtained demonstrating co ncern for acute cholecystitis. A RUQ u/s was obtained demonstrating acute cholecystis. Dr. Richter performed a laparoscopic cholecystectomy with intraoperative cholangiograms on 08/10. Patient developed new onset of tachycardia concerning for A fib with RVR. Hospitalist was consulted. IV Lopressor was given and patient was placed on telemetry. She went into A Fib with RVR again and was placed on a Cardizem drip. Patient had not recent episodes of A Fib. She has been maintained on oral Cardizem every 6 hours. Patient developed urinary retention on Tuesday and a Serrato catheter was placed. This was left in place over the weekend and discontinued on Tuesday, 08/15. Patient is on Eliquis which was resumed 2 days after surgery without any bleeding issues. Patient was set to discharge on 08/15, however she went back into A Fib with RVR. Discharge was held. Digoxin was given x 1 dose and patient was started on oral Digoxin as an outpatient. Upon discharge, patient tolerated a regular diet. She will require ongoing rehabilitation. She was evaluated by speech therapy who noted patient was fine to have a regular diet. She resides at [facility] and will be returning there upon discharge. Patient denies abdominal pain/discomfort. She denies nausea, vomiting. She is urinating well. She will be discharged on Cardizem 30 mg every 6 hours and Digoxin 125 mcg daily. She will need to follow-up with a logger all round and her family physician upon discharge. Patient will also need a CBC and BMP in 1 week. She will need to follow-up with Dr. Richter in 1 week. Patient will require oxygen at discharge. Patient is ambulatory in the home and the community and requires oxygen with portability at discharge. Physical Exam Const alert, oriented x3 and no apparent distress GI soft to palpation Palpation: tender other (near the umbilicus and the incision sites) Weight / BMI Weight Weight: 176 lb 12.972 oz Body Mass Index (BMI) 32.3 ABG / Lab / Microbiology Data 08/15/23 06:00 08/15/23 06:00 Laboratory: Laboratory Results - last 24 hr 08/14/23 15:00: Potassium 3.6 08/15/23 06:00: WBC 8.1, RBC 3.58 L, Hgb 10.1 L, Hct 31.8 L, MCV 88.8, MCH 28.2, MCHC 31.8 L, RDW Std Deviation 47.5 H, RDW Coeff of Kwame 14.7 H, Plt Count 290, MPV 9.7, Immature Gran % (Auto) 1.700 H, Neut % (Auto) 62.0, Lymph % (Auto) 21.8, [place] % (Auto) 8.1, Eos % (Auto) 5.3 H, Baso % (Auto) 1.1 H, Absolute Neuts (auto) 5.0, Absolute Lymphs (auto) 1.77, Nucleated RBC % 0, Sodium 142, Potassium 3.2 L, Chloride 110 H, Carbon Dioxide 27.0, Anion Gap 5, BUN 8, Creatinine 0.76, Estim Creat Clear Calc 33.12, Est GFR (MDRD) Af Amer 94, Est GFR (MDRD) Non-Af 77, BUN/Creatinine Ratio 10.6, Glucose 92, Calcium 9.3 D/C Instructions Discharge Diet: Light diet - advance as tolerated Discharge Activity: May Shower Lifting Restricted to (Lbs): 15 Lifting Restrictions: No lifting greater than 15 pounds for 2 weeks Call your doctor if your incision/area has: Continuous Slow Oozing, Sudden Increased Bleeding, Increased Pain/ Swelling, Increased Redness, Foul Smelling Discharge and Swelling at the incision site Call your doctor if you observe: Fever of 101 or Higher Suture Line Care: Avoid Pulling/Pushing and Avoid Pinching/Bending Remove Dressing in: 2 days Cleanse incision/area with: Soap & Water Please Follow Up With: Naveed Richter MD When: Follow-up in 1 week. Please call to schedule an appointment. Meaningful Use Info Meaningful Use Diagnoses (Choose all that apply): None applicable Discharge Plan Admission Admit Date/Time: 08/08/23 22:00 Primary Reason for Your Visit: Abdominal pain Attending Provider: Naveed Richter Primary Care Provider: Snow Maria Instructions Additional Instructions / Restrictions: Cholecystectomy Diet ? Start light with soups and soft bland foods. You may advance diet as tolerated. Activity ? I encourage walking. You may go up steps, one at a time. ? Do not swim or use hot tubs for 2 weeks. ? For comfort, you may use warm compresses or ice as needed for 15-20 minutes at a time. Lifting ? You may lift up to 15 pounds for 3 weeks Dressings/Incision ? You may shower OVER your plastic dressings ? Do NOT tub bathe for 1 week ? Leave plastic dressings on for 3 days. ? When plastic dressings are removed, you will find steri strips. It is okay to continue showering with them in place, pat them dry. ? You may remove steri-strips after 1 week. We recommend getting them soaking wet for easier removal. Medications ? Anesthesia used during surgery and pain medications may cause constipation. I recommend initiating on the day of surgery a fiber supplement like, Metamucil, Citrucel, FiberCon, Benefiber, or a generic form of these medications. 1 heaping tablespoon in water daily. You may continue to utilize any bowel regimen or oral laxatives that you routinely take. ? As long as you are not intolerant to Tylenol, acetaminophen, ibuprofen, Motrin, Advil, Aleve, or similar medications, I would recommend transitioning to these [id number] medicines as soon as possible instead of continued use of narcotic pain medication. Follow up ? You should call [facility] soon after surgery, at [phone] option 1 to make a follow up appointment for 2 weeks after your surgery. Check CBC and BMP in 1 week Discharge Orders/Prescriptions Prescriptions: New diltiazem HCl 30 mg Tablet 30 mg PO Q6 Qty: 0 0RF digoxin 125 mcg (0.125 mg) Tablet 125 mcg PO DAILY Qty: 0 0RF Continued Eliquis 5 mg tablet 5 mg PO BID ferrous sulfate [Feosol] 325 mg (65 mg iron) tablet 325 mg PO DAILY levothyroxine 125 mcg tablet 125 mcg PO DAILY oxybutynin chloride 15 mg tablet extended release 24hr 15 mg PO DAILY Referrals / Follow Up: Naveed Richter MD [Med Staff - Active Staff] - 08/22/23 (Please call to schedule a follow-up appointment for the week of 08/22. Thank you) Snow Maria MD [Primary Care Provider] - Snow Maria MD [[facility]] - Disposition Disposition (needs filled in before D/C Order can be placed): Assisted Living Charges/Coding Visit Charges Inpatient E&M: 81263 Disch Hosp (No charge; post-op)
--- NOTE | 2023-08-15 12:23 | PCM.TXEXTCAR ---
Diet Diet Order/Speech Therapy: 08/14/23 09:29 Diet: Full Liquid Is pt able to select menu?: No Diet Comments: 1:1 supervision, liquids by straw, meds crushed in applesauce Advance to: Regular Wound(s) ABDOMEN: Wound Type: Surgical Incision (Abdomen- 4 laparoscopic incisions c/d/i. ) Therapies Weight Bearing: Full weight bearing Physical Therapy: Eval and Treat Occupational Therapy: Eval and Treat Speech Therapy: Eval and Treat Problem/Diagnosis (1) Acute cholecystitis: Status: Acute Code(s): K81.0 - Acute cholecystitis Plan Plan Atrial fibrillation/flutter with RVR -Appears to be paroxysmal and I would not be surprised if patient has this at baseline -Remains in normal sinus rhythm -Continue Cardizem 30 mg every 6 hours -Continue Eliquis -[id number] score is 3 -Echocardiogram showed an EF of 60% with stage I diastolic dysfunction and mild concentric LVH but no valvular abnormalities and atrium were normal bilaterally. -TSH is within normal limits -Will recommend outpatient cardiology follow-up after discharge Hypokalemia -Magnesium is within normal limits -Replaced orally -Recheck in a.m. Acute cholecystitis -Postop day 4 -On clear liquid diet awaiting return of bowel function -Advance per general surgery -Continue IV fluids per primary service -Management per primary service -Continue clear liquid diet and advance per general surgery recommendations Debility -PT/OT following -Case management/social work following and patient currently resides at [facility] where she receives quite a bit of assistance and they feel comfortable taking her back as long as family is agreeable Dysphagia -Patient with some coughing after eating -Concerning for swallowing difficulties -Speech therapy following and cleared for clear liquid diet with one-on-one supervision's, liquids by straws and meds crushed in applesauce Acute anemia -Hemoglobin is stable at 10 -Continue home iron supplementation -Baseline hemoglobin appears to run between 12 and 13 History of DVT -Plan for general surgery to restart apixaban this evening CKD stage III A -Baseline serum creatinine appears to run between 1.0 and 1.2 -Current serum creatinine 0.83 -Continue to monitor -IV fluids per primary service Hypothyroidism -Continue home levothyroxine Urinary incontinence -Continue home oxybutynin Bilateral visual impairment -Chronic stable DVT prophylaxis -Continue Eliquis Allergies/Procedures Done in Hospital Allergies Sulfa (Sulfonamide Antibiotics) Allergy (Verified 08/08/23 19:44) PT UNSURE OF REACTION REACTION HAPPENED A CHILD SO SHE IS UNSURE OF REACTION Type of Care/Length of Stay Estimated LOS: Convalescent Care Less Than 30 days Type of Care Needed: Skilled Rehab Potential: Good Prognosis: Good Additional Orders/Day of Discharge Day of Discharge: 08/15/23 Dietary and Speech Recommendations Dietitian Recommendations/Changes: Advance diet as tolerated to Regular with consistency/texture as per [employer]. Will d/c ensure clear with medpass. Will add ensure compact BID w/ full liquid meal trays. Discontinue ONS as able to advance diet to solid food. Follow Up Care Please follow up with your Primary Care Physician in: 1 week Please Follow Up With: Naveed Richter MD When: 2 weeks from surgery. Week of 08/22. Please call [phone] Discharge Plan Admission Admit Date/Time: 08/08/23 22:00 Primary Reason for Your Visit: Abdominal pain Attending Provider: Naveed Richter Primary Care Provider: Snow Maria Instructions Additional Instructions / Restrictions: Cholecystectomy Diet ? Start light with soups and soft bland foods. You may advance diet as tolerated. Activity ? I encourage walking. You may go up steps, one at a time. ? Do not swim or use hot tubs for 2 weeks. ? For comfort, you may use warm compresses or ice as needed for 15-20 minutes at a time. Lifting ? You may lift up to 15 pounds for 3 weeks Dressings/Incision ? You may shower OVER your plastic dressings ? Do NOT tub bathe for 1 week ? Leave plastic dressings on for 3 days. ? When plastic dressings are removed, you will find steri strips. It is okay to continue showering with them in place, pat them dry. ? You may remove steri-strips after 1 week. We recommend getting them soaking wet for easier removal. Medications ? Anesthesia used during surgery and pain medications may cause constipation. I recommend initiating on the day of surgery a fiber supplement like, Metamucil, Citrucel, FiberCon, Benefiber, or a generic form of these medications. 1 heaping tablespoon in water daily. You may continue to utilize any bowel regimen or oral laxatives that you routinely take. ? As long as you are not intolerant to Tylenol, acetaminophen, ibuprofen, Motrin, Advil, Aleve, or similar medications, I would recommend transitioning to these [id number] medicines as soon as possible instead of continued use of narcotic pain medication. Follow up ? You should call [facility] soon after surgery, at [phone] option 1 to make a follow up appointment for 2 weeks after your surgery. Discharge Orders/Prescriptions Prescriptions: New diltiazem HCl 30 mg Tablet 30 mg PO Q6 Qty: 0 0RF Continued Eliquis 5 mg tablet 5 mg PO BID ferrous sulfate [Feosol] 325 mg (65 mg iron) tablet 325 mg PO DAILY levothyroxine 125 mcg tablet 125 mcg PO DAILY oxybutynin chloride 15 mg tablet extended release 24hr 15 mg PO DAILY Referrals / Follow Up: Naveed Richter MD [Med Staff - Active Staff] - 08/22/23 (Please call to schedule a follow-up appointment for the week of 08/22. Thank you) Snow Maria MD [Primary Care Provider] - Snow Maria MD [[facility]] - Disposition Disposition (needs filled in before D/C Order can be placed): Assisted Living Charges/Coding Visit Charges Inpatient E&M: 72645 SNF Disch (no charge; post-op)
--- NOTE | 2023-08-15 13:33 | CASEMGMT ---
Patient is ready for discharge back to [facility]. Ambulance transport will need to be set up for patient. Plan: d/c to back to [facility]. Ellie FORD
--- NOTE | 2023-08-15 14:21 | CASEMGMT ---
Discharge Planning Discharge orders and signed med list sent to [place] via fax. Awaiting response on O2 use. Briseyda Anderson, Discharge Planning Asst.
--- NOTE | 2023-08-15 15:41 | PCM.PN.HOSP ---
Reason for Visit Reason for Visit: Right upper quad abdominal pain Subjective Subjective Patient denies any issues. Still denies any flatus or bowel movements. Diet was advanced and she did eat some cream of wheat and a nonclear Ensure. Objective Data Objective Data Vital Signs: Vital Signs Temp Pulse Resp BP Pulse Ox O2 Del Method O2 Flow Rate 97.8 F 81 17 133/72 H 94 Nasal Cannula 2 08/15/23 15:33 08/15/23 15:33 08/15/23 15:33 08/15/23 15:33 08/15/23 15:33 08/15/23 15:35 08/15/23 15:35 Oxygen Flow Rate (L/min) 2 Oxygen Delivery Method Nasal Cannula Weight: 80.2 kg Body Mass Index (BMI) 32.3 Intake & Output: Intake and Output for Last 24 Hours 08/13/23 08/14/23 08/15/23 23:59 23:59 23:59 Intake Total 1116.25 / 1116.25 2168.33 / 2168.33 1049.17 / 1049.17 Output Total 1050 / 1050 1350 / 1350 1200 / 1200 Balance 66.25 / 66.25 818.33 / 818.33 -150.83 / -150.83 Lab / Micro Data 08/15/23 06:00 08/15/23 06:00 Labs: Laboratory Results - last 24 hr 08/15/23 06:00: WBC 8.1, RBC 3.58 L, Hgb 10.1 L, Hct 31.8 L, MCV 88.8, MCH 28.2, MCHC 31.8 L, RDW Std Deviation 47.5 H, RDW Coeff of Kwame 14.7 H, Plt Count 290, MPV 9.7, Immature Gran % (Auto) 1.700 H, Neut % (Auto) 62.0, Lymph % (Auto) 21.8, Robertson % (Auto) 8.1, Eos % (Auto) 5.3 H, Baso % (Auto) 1.1 H, Absolute Neuts (auto) 5.0, Absolute Lymphs (auto) 1.77, Nucleated RBC % 0, Sodium 142, Potassium 3.2 L, Chloride 110 H, Carbon Dioxide 27.0, Anion Gap 5, BUN 8, Creatinine 0.76, Estim Creat Clear Calc 33.12, Est GFR (MDRD) Af Amer 94, Est GFR (MDRD) Non-Af 77, BUN/Creatinine Ratio 10.6, Glucose 92, Calcium 9.3 Rhythm Strip Rhythm Strip: Sinus Rhythm Rate: 82 Ectopy: None Physical Exam Const alert and no apparent distress; Negative for average body habitus Constitutional Narrative: Obese, elderly female, chronically ill-appearing, sitting up in bed is just finishing breakfast, family at bedside General Appearance: cooperative and comfortable HEENT normocephalic, head/scalp atraumatic, hearing grossly normal bilaterally and moist oral mucous membranes Resp normal respiratory effort, no retractions, no use of accessory muscles and clear to auscultation bilaterally Resp Narrative: Decreased at bases bilaterally, few scattered crackles at bases Auscultation: Negative for rales, rhonchi or wheezes Cardio regular rate, regular rhythm, S1 normal heart sound, S2 normal heart sound, no murmurs, no rub, no gallops and no clicks GI normal to inspection, nondistended, normoactive bowel sounds and soft to palpation GI Narrative: Mild tenderness at the portal but otherwise benign, bowel sounds are hypoactive but present Extremity no clubbing, cyanosis or edema Extremity Narrative: Decreased lean muscle mass, 2+ pedal pulses Neuro oriented x3, moves all extremities and no focal motor deficits Neuro Narrative: Severe generalized debility proximal greater than distal and lower extremities more affected than upper Psych Psych Narrative: Affect is flat and mood seems somewhat depressed Assessment & Plan Assessment/Plan (1) Paroxysmal atrial fibrillation with RVR: (2) Acute cholecystitis: (3) Abdominal pain: (4) Debility: (5) Dysphagia: (6) Hypokalemia: PLAN: Plan Atrial fibrillation/flutter with RVR -Appears to be paroxysmal and I would not be surprised if patient has this at baseline -Remains in normal sinus rhythm for 48 hours now -Continue Cardizem 30 mg every 6 hours -Continue Eliquis -[id number] score is 3 -Echocardiogram showed an EF of 60% with stage I diastolic dysfunction and mild concentric LVH but no valvular abnormalities and atrium were normal bilaterally. -TSH is within normal limits -Will recommend outpatient cardiology follow-up after discharge Hypoxia -Suspect postoperative atelectasis -Patient is not very compliant with incentive spirometry and is not very mobile and places her at high risk for pneumonia -We will give Lasix 20 mg IV push x 1 today -Wean oxygen as able -If patient is still here tomorrow we will check chest x-ray -Strongly encourage compliance with incentive spirometry Hypokalemia -Improved but will replete again today Acute cholecystitis -Postop day 5 -Diet was advanced to regular by general surgery -Advance per general surgery -Continue IV fluids per primary service -Management per primary service -Continue clear liquid diet and advance per general surgery recommendations Debility -PT/OT following -Case management/social work following and patient currently resides at [facility] where she receives quite a bit of assistance and they feel comfortable taking her back as long as family is agreeable Dysphagia -Patient with some coughing after eating -Concerning for swallowing difficulties -Speech therapy following and cleared for regular with one-on-one supervision's, liquids by straws and meds crushed in applesauce Acute anemia -Hemoglobin is stable at 10 -Continue home iron supplementation -Baseline hemoglobin appears to run between 12 and 13 History of DVT -Plan for general surgery to restart apixaban this evening CKD stage III A -Baseline serum creatinine appears to run between 1.0 and 1.2 -Current serum creatinine 0.76 -Continue to monitor -IV fluids discontinued Hypothyroidism -Continue home levothyroxine Urinary incontinence -Continue home oxybutynin Bilateral visual impairment -Chronic stable DVT prophylaxis -Continue Eliquis Charges/Coding Visit Charges Inpatient E&M: 81755 Subs Hosp L2
[2023-08-15] MEDS: Furosemide 20 MG/2 ML VIAL IV (16:16)
--- NOTE | 2023-08-15 16:16 | CASEMGMT ---
RN CM updated that patient will need home oxygen at discharge. RN CM in to patient's room to discuss with son. Son agreeable to [facility] for DME. Script received and referral sent to [facility] via [facility]. Portable tank provided to patient from [employer].
--- NOTE | 2023-08-15 18:02 | NURSING ---
Report called to [facility].
[2023-08-15] MEDS: dilTIAZem 25 MG/5 ML Vial 10 MG IV BOLUS (18:59)
[2023-08-15] MEDS: Digoxin 250 MCG/ML Ampul 500 MCG IV (19:29)
--- NOTE | 2023-08-15 19:52 | NURSING ---
Transport was here to [place] pick[place] patient this evening, however, pt was in afib with elevated HR. MD notified. Son came back to the hospital and is aware of patient not being discharged back to [facility]. [facility] was also notified of patient staying.
[2023-08-16 00:52] VITALS: BP 146/79; PULSE 78; RESP 16; TEMP 36.8; O2SAT 94
[2023-08-16] MEDS: dilTIAZem 30 MG Tablet PO ×2 (00:54→05:18)
[2023-08-16 05:16] VITALS: BP 116/79; PULSE 76; RESP 16; TEMP 36.6; O2SAT 92
[2023-08-16] MEDS: Nystatin Powder 15gm Bottle 1 APPLIC TOPICAL (05:18)
[2023-08-16] MEDS: Menthol/Lanolin/Calamine/Znox 113 GM Tube 1 APPLIC TOPICAL (05:18)
[2023-08-16] MEDS: Levothyroxine 125 MCG Tablet PO (05:19)
[2023-08-16 07:45] VITALS: O2SAT 93
[2023-08-16] MEDS: APIXABAN 5 MG TABLET PO (08:08)
[2023-08-16] MEDS: Docusate Sodium 100 MG/10 ML UDC PO (08:08)
[2023-08-16] MEDS: Tolterodine Tartrate 4 MG CAP.SA PO (08:08)
[2023-08-16 08:14] VITALS: PULSE 71
[2023-08-16] MEDS: Digoxin 125 MCG Tablet PO (08:14)
--- NOTE | 2023-08-16 09:05 | PCM.PN.SRG ---
Subjective Subjective Patient reports that she is doing well. She is not complaining of any chest pain. Objective Data Objective Data Vital Signs: Vital Signs Temp Pulse Resp BP Pulse Ox O2 Del Method O2 Flow Rate 97.9 F 71 16 116/79 93 Nasal Cannula 3 08/16/23 05:16 08/16/23 08:14 08/16/23 05:16 08/16/23 05:16 08/16/23 07:45 08/16/23 07:45 08/16/23 07:45 Oxygen Flow Rate (L/min) [ 2 AMBULATING with Oxygen #1] Oxygen Flow Rate (L/min) [At 2 REST with Oxygen] Oxygen Flow Rate (L/min) 3 Oxygen Delivery Method Nasal Cannula Weight: 176 lb 12.972 oz Body Mass Index (BMI) 32.3 Intake & Output: Intake and Output for Last 24 Hours 08/14/23 08/15/23 08/16/23 23:59 23:59 23:59 Intake Total 2168.33 / 2168.33 1489.17 / 1489.17 60 / 60 Output Total 1350 / 1350 1200 / 1700 750 / 750 Balance 818.33 / 818.33 289.17 / -210.83 -690 / -690 Lab / Micro Data 08/15/23 06:00 08/15/23 06:00 Rhythm Strip Rhythm Strip: Sinus Rhythm Rate: 82 Ectopy: None Physical Exam Const oriented x3 and no apparent distress GI soft to palpation and non-tender Assessment & Plan Assessment/Plan (1) S/P laparoscopic cholecystectomy: PLAN: Patient went back in [facility] when she was supposed to be picked up yesterday to be discharged. She was kept overnight digoxin was started. She is in normal sinus rhythm this morning. She will be discharged back to her custodial today. Naveed Richter MD Pager: [facility] [address] [place] [address], [address] [place] [address] Office:
[2023-08-16 10:12] VITALS: BP 131/62; PULSE 77; RESP 17; TEMP 36.6; O2SAT 93
--- NOTE | 2023-08-16 10:15 | PN.HOSP_ITS ---
Reason for Visit Reason for Visit: Abdominal pain Subjective Subjective Patient was getting ready be discharged but then reverted back in A-fib with heart rates in the 150s. I gave her dose of IV digoxin and she eventually converted back to normal sinus rhythm where she has been since. Again I think this is a chronic issue for her and she goes in and out of A-fib for very brief periods of time. She is on chronic anticoagulation at baseline. Objective Data Objective Data Vital Signs: Vital Signs Temp Pulse Resp BP Pulse Ox O2 Del Method O2 Flow Rate 98 F 77 17 131/62 H 93 Nasal Cannula 2 08/16/23 10:12 08/16/23 10:12 08/16/23 10:12 08/16/23 10:12 08/16/23 10:12 08/16/23 10:12 08/16/23 10:12 Oxygen Flow Rate (L/min) [ 2 AMBULATING with Oxygen #1] Oxygen Flow Rate (L/min) [At 2 REST with Oxygen] Oxygen Flow Rate (L/min) 2 Oxygen Delivery Method Nasal Cannula Weight: 80.2 kg Body Mass Index (BMI) 32.3 Intake & Output: Intake and Output for Last 24 Hours 08/14/23 08/15/23 08/16/23 23:59 23:59 23:59 Intake Total 2168.33 / 2168.33 1489.17 / 1489.17 60 / 60 Output Total 1350 / 1350 1200 / 1700 750 / 750 Balance 818.33 / 818.33 289.17 / -210.83 -690 / -690 Lab / Micro Data 08/15/23 06:00 08/15/23 06:00 Rhythm Strip Rhythm Strip: Sinus Rhythm Rate: 82 Ectopy: None Physical Exam Const alert and no apparent distress; Negative for average body habitus Constitutional Narrative: Obese, elderly female, chronically ill-appearing, sitting up in bed watching television, family at bedside General Appearance: cooperative and comfortable HEENT normocephalic, head/scalp atraumatic and moist oral mucous membranes Resp normal respiratory effort, no retractions, no use of accessory muscles and clear to auscultation bilaterally Auscultation: Negative for rales, rhonchi or wheezes Cardio regular rate, regular rhythm, S1 normal heart sound, S2 normal heart sound, no murmurs, no rub, no gallops and no clicks GI normal to inspection, nondistended, normoactive bowel sounds, soft to palpation and non-tender GI Narrative: Mild tenderness Extremity no clubbing, cyanosis or edema Extremity Narrative: Decreased lean muscle mass, 2+ pedal pulses Neuro oriented x3, moves all extremities and no focal motor deficits Neuro Narrative: Severe generalized debility proximal greater than distal and lower extremities more affected than upper Psych Psych Narrative: Affect remains flat and mood is depressed Assessment & Plan Assessment/Plan (1) Paroxysmal atrial fibrillation with RVR: (2) Acute cholecystitis: (3) Abdominal pain: (4) Debility: (5) Dysphagia: (6) Hypokalemia: PLAN: Plan Atrial fibrillation/flutter with RVR -Appears to be paroxysmal and I would not be surprised if patient does not have this at baseline -Remained in normal sinus rhythm for >48 hours and then had a brief episode of A-fib last night -Spontaneously converted -IV dig given 500 x 1 dose -Will start oral dig 125 mg daily -Recommend BMP in 1 week -Continue Cardizem 30 mg every 6 hours -Continue Eliquis -[id number] score is 3 -Echocardiogram showed an EF of 60% with stage I diastolic dysfunction and mild concentric LVH but no valvular abnormalities and atrium were normal bilaterally. -TSH is within normal limits -Will recommend outpatient cardiology follow-up after discharge Hypoxia -Suspect postoperative atelectasis -Patient is not very compliant with incentive spirometry and is not very mobile and places her at high risk for pneumonia -Wean oxygen as able -Strongly encourage compliance with incentive spirometry Acute cholecystitis -Postop day 6 -Diet was advanced to regular by general surgery -Advance per general surgery -Continue IV fluids per primary service -Management per primary service -Continue clear liquid diet and advance per general surgery recommendations Debility -PT/OT following -Case management/social work following and patient currently resides at [facility] where she receives quite a bit of assistance and they feel comfortable taking her back as long as family is agreeable Dysphagia -Patient with some coughing after eating -Concerning for swallowing difficulties -Speech therapy following and cleared for regular with one-on-one supervision's, liquids by straws and meds crushed in applesauce Acute anemia -Hemoglobin has been stable at around 10 -Continue home iron supplementation -Baseline hemoglobin appears to run between 12 and 13 History of DVT -Continue home apixaban CKD stage III A -Baseline serum creatinine appears to run between 1.0 and 1.2 -Continue to monitor -IV fluids discontinued Hypothyroidism -Continue home levothyroxine Urinary incontinence -Continue home oxybutynin Bilateral visual impairment -Chronic stable DVT prophylaxis -Continue Eliquis Charges/Coding Visit Charges Inpatient E&M: 45960 Subs Hosp L2
--- NOTE | 2023-08-16 10:30 | CASEMGMT ---
Discharge Planning Discharge orders and signed med list faxed to [place]. Phone call placed with transport time. [facility] will transport patient by cot at 10:30a. Nursing, SW, patient, and her son updated. Briseyda Anderson, Discharge Planning Asst.
--- NOTE | 2023-08-16 10:52 | PHA.DC.MR.R ---
Pharmacy IN Med Reconciliation Pharmacy Service has performed discharge medication reconciliation for this patient. The patient's discharge medication list was reviewed for discrepancies and discrepancies were resolved. Medications at Discharge Home Medications apixaban 5 mg tablet (Eliquis) 5 mg PO BID anticoagulant 08/08/23 ferrous sulfate 325 mg (65 mg iron) tablet (Feosol) 325 mg PO DAILY supplement 08/08/23 levothyroxine 125 mcg tablet 125 mcg PO DAILY thyrroid 08/08/23 oxybutynin chloride 15 mg tablet,extended release 24 hr 15 mg PO DAILY incontinence 08/08/23 diltiazem HCl 30 mg tablet 30 mg PO Q6 #0 tabs 08/15/23 digoxin 125 mcg (0.125 mg) tablet 125 mcg PO DAILY #0 tabs 08/16/23
== END 2023-08-16 10:39 | disposition home or self-care (01) | DRG 418 ==
LOC: ED 21:51 → PCU 22:05
PROVIDERS: Anesthesiology; Internal Medicine; Nurse Practitioner; Surgery; Admitting Provider Surgery; Emergency Provider Emergency Medicine; PCP Family Medicine; Visit Provider Surgery
PROC: 0FT44ZZ Resection of Gallbladder, Percutaneous Endoscopic Approach (ICD-10-PCS; CPT 47610; principal; 2023-08-10 15:10)
DX: K81.0 Acute cholecystitis (principal); I48.92 Unspecified atrial flutter; N18.31 Chronic kidney disease, stage 3a; I48.0 Paroxysmal atrial fibrillation; E03.9 Hypothyroidism, unspecified; E87.6 Hypokalemia; H53.8 Other visual disturbances; Z86.718 Personal history of other venous thrombosis and embolism; R53.81 Other malaise; R13.10 Dysphagia, unspecified; Z79.01 Long term (current) use of anticoagulants; R09.02 Hypoxemia; Z79.899 Other long term (current) drug therapy; Z79.890 Hormone replacement therapy; R39.81 Functional urinary incontinence
CPT/HCPCS: 36415; 74177; 74300; 76000; 76705; 80048; 80053; 81001; 83690; 83735; 84132; 84443; 85014; 85018; 85025; 85027; 85610; 88304; 92526; 92610; 93005; 93306; 94668; 94762; 97162; 97166; 97530; 97535; 99285; J7030; J7040; Q9967; A4216; J1940; J2405

== ENCOUNTER → 2023-09-16 | Outpatient (REF) | payer MEDICARE, SELFPAY ==
[2023-09-16 13:23] LABS: Mucous, Urine 0 SEEN /hpf (<or=2+)
[2023-09-16 14:09] LABS: Color, Urine Yellow (Yellow); Glucose, Dipstick Normal (Normal); Ketone-Dipstick Negative (Negative); Leukocyte Esterase-Dipstick 500 /ul (Negative); Nitrite-Dipstick Positive (Negative); Occult Blood-Urine 25 /ul (Negative); Protein-Dipstick 15 mg/dl (Negative); Specific Gravity, Urine 1.015 (1.002-1.030); Urine Bilirubin Dipstick Negative (Negative); Urine Clarity Sl. Cloudy (Clear); Urine Urobilinogen Normal (Normal); Urine pH 6.5 (5.0 - 8.0)
[2023-09-16 14:19] LABS: Bacteria 3+ /hpf (None Seen); Red Blood Cells-Urine 0-5 SEEN /hpf (0-5); Squamous Epithelial Cells - UA 0-5 SEEN /hpf (5-10); White Blood Cells 25-50 SEEN /hpf (0-5)
== END ==
PROVIDERS: PCP Family Medicine; Visit Provider Family Medicine
DX: R79.89 Other specified abnormal findings of blood chemistry (principal); E83.52 Hypercalcemia; Z79.899 Other long term (current) drug therapy
CPT/HCPCS: 81001; 87077; 87086; 87088; 87186

== ENCOUNTER → 2023-11-14 | Outpatient (REF) | payer MEDICARE, SELFPAY ==
[2023-11-14 07:26] LABS: Absolute Neutrophil Count 4.4 X10^3/uL (2.0-7.7); Basophil# 0.06 X10^3/uL; Basophil% 0.8 % (0-1); Eosinophils% 5.5 % (0-5); Hematocrit 36.1 % (37-47); Hemoglobin 11.6 g/dL (12.0-15.0); Lymphocyte % 26.2 % (19-41); Mean Corp Hgb Conc 32.1 g/dL (32-36); Mean Corpuscular Hgb 29.5 pg (27.0-32.0); Mean Corpuscular Volume 91.9 fL (81-99); Mean Platelet Vol. 10.6 fl (6.2-12.0); Monocyte% 6.9 % (0-10); NRBC Flagged by Analyzer 0 % (0-5); Neutrophil # 4.37 X10^3/uL (2.7-7.7); Neutrophil % 60.2 % (47-70); Platelet Count 239 K/mm3 (150-450); RBC Distribution Width CV 14.7 % (11.6-14.6); Red Blood Count 3.93 M/mm3 (4.2-5.4); White Blood Count 7.3 K/mm3 (4.4-11.0)
[2023-11-14 07:36] LABS: ALB/GLOB Ratio 1.1 RATIO (0.9-2.4); AST(SGOT) 20 U/L (15-37); Alanine Aminotransfer ALT/SGPT 20 U/L (13-56); Albumin, Serum 3.1 g/dL (3.2-5.0); Alkaline Phosphatase 126 U/L (45-117); Anion Gap 4 (5-15); BUN 19 mg/dL (7-18); BUN/Creat Ratio 17.8 RATIO (10-20); Calcium,Total 9.8 mg/dL (8.5-10.1); Chloride 113 mmol/L (98-107); Creatinine, Serum 1.07 mg/dL (0.55-1.02); EST Glomerular Filtration Rate 52 mL/min (>60); Est Glom Filt Rate - Afr Amer 63 mL/min (>60); Globulin 2.7 g/dL (2.2-4.2); Glucose 88 mg/dL (74-106); Potassium 4.1 mmol/L (3.5-5.1); Protein, Total 5.8 g/dL (6.4-8.2); Sodium Level 142 mmol/L (136-145); T4 Free Direct 1.18 ng/dL (0.76-1.46); Thyroid Stim Hormone (TSH) 3.94 uIU/mL (0.358-3.74)
[2023-11-14 08:32] LABS: Vitamin D,25 Hydroxy 59.4 ng/mL
== END ==
PROVIDERS: PCP Family Medicine; Visit Provider Family Medicine
DX: I48.91 Unspecified atrial fibrillation (principal); E03.9 Hypothyroidism, unspecified; I82.403 Acute embolism and thrombosis of unspecified deep veins of lower extremity, bilateral; M35.3 Polymyalgia rheumatica; E55.9 Vitamin D deficiency, unspecified; Z79.899 Other long term (current) drug therapy
CPT/HCPCS: 36415; 80053; 82306; 84439; 84443; 85025

== ENCOUNTER → 2023-12-14 | Outpatient (REF) | payer MEDICARE, SELFPAY ==
[2023-12-15 07:40] LABS: Bacteria 0 SEEN /hpf (None Seen); Mucous, Urine 0 SEEN /hpf (<or=2+); Red Blood Cells-Urine 0 SEEN /hpf (0-5); White Blood Cells 0 SEEN /hpf (0-5)
[2023-12-15 08:05] LABS: Color, Urine Straw (Yellow); Glucose, Dipstick Normal (Normal); Ketone-Dipstick Negative (Negative); Leukocyte Esterase-Dipstick Negative /ul (Negative); Nitrite-Dipstick Negative (Negative); Occult Blood-Urine Negative /ul (Negative); Protein-Dipstick Negative (Negative); Urine Bilirubin Dipstick Negative (Negative); Urine Clarity Clear (Clear); Urine Urobilinogen Normal (Normal)
[2023-12-15 08:13] LABS: Squamous Epithelial Cells - UA 0-5 SEEN /hpf (5-10)
== END ==
PROVIDERS: PCP Family Medicine; Visit Provider Family Medicine
DX: N39.0 Urinary tract infection, site not specified (principal)
CPT/HCPCS: 81001; 87077; 87086; 87088; 87186

== ENCOUNTER → 2024-01-16 | Outpatient (REF) | payer MEDICARE, SELFPAY ==
[2024-01-16 08:45] LABS: Absolute Lymphocyte Count 2.04 X10^3/uL (0.83-4.51); Absolute Neutrophil Count 4.6 X10^3/uL (2.0-7.7); Basophil# 0.07 X10^3/uL; Basophil% 0.9 % (0-1); Eosinophil# 0.44 X10^3/uL; Eosinophils% 5.8 % (0-5); Hematocrit 40.2 % (37-47); Lymphocyte # 2.04 X10^3/ul (0.83-4.51); Lymphocyte % 26.7 % (19-41); Mean Corp Hgb Conc 32.3 g/dL (32-36); Mean Corpuscular Hgb 29.6 pg (27.0-32.0); Mean Corpuscular Volume 91.6 fL (81-99); Mean Platelet Vol. 10.3 fl (6.2-12.0); Monocyte# 0.45 X10^3/uL; Monocyte% 5.9 % (0-10); NRBC Flagged by Analyzer 0 % (0-5); Neutrophil # 4.62 X10^3/uL (2.7-7.7); Neutrophil % 60.4 % (47-70); Platelet Count 267 K/mm3 (150-450); RBC Distribution Width CV 14.6 % (11.6-14.6); RBC Distribution Width SD 49.4 fl (35.1-43.9); Red Blood Count 4.39 M/mm3 (4.2-5.4); White Blood Count 7.6 K/mm3 (4.4-11.0)
[2024-01-16 09:27] LABS: Thyroid Stim Hormone (TSH) 3.23 uIU/mL (0.358-3.74)
== END ==
PROVIDERS: PCP Family Medicine; Visit Provider Family Medicine
DX: D64.9 Anemia, unspecified (principal)
CPT/HCPCS: 36415; 84443; 85025

== ENCOUNTER → 2024-04-25 | Outpatient (REF) | payer MEDICARE, SELFPAY ==
[2024-04-25 08:32] LABS: Vitamin D,25 Hydroxy 51.2 ng/mL
[2024-04-25 08:50] LABS: Anion Gap 6 (5-15); BUN 20 mg/dL (7-18); BUN/Creat Ratio 19.8 RATIO (10-20); Calcium,Total 9.7 mg/dL (8.5-10.1); Chloride 111 mmol/L (98-107); Cholesterol 180 mg/dL (200); Creatinine, Serum 1.01 mg/dL (0.55-1.02); EST Glomerular Filtration Rate 55 mL/min (>60); Est Glom Filt Rate - Afr Amer 67 mL/min (>60); Glucose 82 mg/dL (74-106); High Density Lipoprotein 41 mg/dL; Phosphorus 3.3 mg/dL (2.5-4.9); Potassium 4.3 mmol/L (3.5-5.1); Sodium Level 142 mmol/L (136-145); T4 Free Direct 1.37 ng/dL (0.76-1.46); Triglycerides 171 mg/dL; Very Low Density Lipoprotein 34 mg/dL (5-40)
== END ==
PROVIDERS: PCP Family Medicine; Visit Provider Family Medicine
DX: D64.9 Anemia, unspecified (principal); E03.9 Hypothyroidism, unspecified; I48.19 Other persistent atrial fibrillation; I82.403 Acute embolism and thrombosis of unspecified deep veins of lower extremity, bilateral; N28.1 Cyst of kidney, acquired; M35.3 Polymyalgia rheumatica; Z79.899 Other long term (current) drug therapy
CPT/HCPCS: 36415; 80048; 80061; 82306; 84100; 84439; 84443

== ENCOUNTER → 2024-04-26 | Outpatient (REF) | payer MEDICARE, SELFPAY ==
[2024-04-26 08:08] LABS: Absolute Lymphocyte Count 2.56 X10^3/uL (0.83-4.51); Absolute Neutrophil Count 4.9 X10^3/uL (2.0-7.7); Basophil# 0.09 X10^3/uL; Basophil% 1.1 % (0-1); Eosinophil# 0.48 X10^3/uL; Eosinophils% 5.6 % (0-5); Hematocrit 39.7 % (37-47); Hemoglobin 12.7 g/dL (12.0-15.0); Lymphocyte # 2.56 X10^3/ul (0.83-4.51); Mean Corpuscular Hgb 29.4 pg (27.0-32.0); Mean Corpuscular Volume 91.9 fL (81-99); Mean Platelet Vol. 10.5 fl (6.2-12.0); Monocyte% 5.9 % (0-10); NRBC Flagged by Analyzer 0 % (0-5); Neutrophil # 4.86 X10^3/uL (2.7-7.7); Platelet Count 266 K/mm3 (150-450); RBC Distribution Width CV 14.1 % (11.6-14.6); RBC Distribution Width SD 47.8 fl (35.1-43.9); Red Blood Count 4.32 M/mm3 (4.2-5.4); White Blood Count 8.5 K/mm3 (4.4-11.0)
== END ==
PROVIDERS: PCP Family Medicine; Visit Provider Family Medicine
DX: D64.9 Anemia, unspecified (principal); E03.9 Hypothyroidism, unspecified; I48.19 Other persistent atrial fibrillation; M35.3 Polymyalgia rheumatica; I82.403 Acute embolism and thrombosis of unspecified deep veins of lower extremity, bilateral; N28.1 Cyst of kidney, acquired; Z79.899 Other long term (current) drug therapy
CPT/HCPCS: 85025

== ENCOUNTER → 2024-05-21 09:20 | Outpatient (REF) | payer MEDICARE, SELFPAY ==
[2024-05-21 10:51] LABS: Hematocrit 43.2 % (37-47); Hemoglobin 13.5 g/dL (12.0-15.0); Mean Corp Hgb Conc 31.3 g/dL (32-36); Mean Corpuscular Hgb 29.1 pg (27.0-32.0); Mean Corpuscular Volume 93.1 fL (81-99); Mean Platelet Vol. 10.6 fl (6.2-12.0); Platelet Count 280 K/mm3 (150-450); RBC Distribution Width CV 14.1 % (11.6-14.6); RBC Distribution Width SD 48.7 fl (35.1-43.9); Red Blood Count 4.64 M/mm3 (4.2-5.4); White Blood Count 9.1 K/mm3 (4.4-11.0)
[2024-05-21 11:18] LABS: Vitamin D,25 Hydroxy 34.8 ng/mL
[2024-05-21 11:36] LABS: ALB/GLOB Ratio 0.9 RATIO (0.9-2.4); AST(SGOT) 35 U/L (15-37); Alanine Aminotransfer ALT/SGPT 42 U/L (13-56); Albumin, Serum 3.3 g/dL (3.2-5.0); Alkaline Phosphatase 136 U/L (45-117); Anion Gap 7 (5-15); BUN 17 mg/dL (7-18); BUN/Creat Ratio 17.9 RATIO (10-20); Calcium,Total 10.1 mg/dL (8.5-10.1); Chloride 108 mmol/L (98-107); Creatinine, Serum 0.95 mg/dL (0.55-1.02); EST Glomerular Filtration Rate 59 mL/min (>60); Est Glom Filt Rate - Afr Amer 72 mL/min (>60); Globulin 3.5 g/dL (2.2-4.2); Glucose 124 mg/dL (74-106); Potassium 4.1 mmol/L (3.5-5.1); Protein, Total 6.8 g/dL (6.4-8.2); Sodium Level 141 mmol/L (136-145); T4 Free Direct 1.58 ng/dL (0.76-1.46)
== END ==
PROVIDERS: PCP Family Medicine; Visit Provider Family Medicine
DX: E03.9 Hypothyroidism, unspecified (principal); I82.403 Acute embolism and thrombosis of unspecified deep veins of lower extremity, bilateral; M19.90 Unspecified osteoarthritis, unspecified site; M81.0 Age-related osteoporosis without current pathological fracture
CPT/HCPCS: 36415; 80053; 82306; 84439; 84443; 85027

== ENCOUNTER → 2024-08-20 05:00 | Outpatient (REF) | payer MEDICARE, SELFPAY ==
[2024-08-20 09:03] LABS: Anion Gap 3 (5-15); BUN 22 mg/dL (7-18); BUN/Creat Ratio 22.7 RATIO (10-20); Calcium,Total 10.1 mg/dL (8.5-10.1); Chloride 112 mmol/L (98-107); Creatinine, Serum 0.97 mg/dL (0.55-1.02); EST Glomerular Filtration Rate 58 mL/min (>60); Est Glom Filt Rate - Afr Amer 70 mL/min (>60); Glucose 87 mg/dL (74-106); Potassium 4.1 mmol/L (3.5-5.1); Sodium Level 141 mmol/L (136-145); T4 Total, Thyroxin 13.7 ug/dL (4.8-13.9); Thyroid Stim Hormone (TSH) 0.304 uIU/mL (0.358-3.740)
== END ==
PROVIDERS: Visit Provider Family Medicine
DX: N18.9 Chronic kidney disease, unspecified (principal); I95.9 Hypotension, unspecified; I48.91 Unspecified atrial fibrillation; E03.9 Hypothyroidism, unspecified; I82.403 Acute embolism and thrombosis of unspecified deep veins of lower extremity, bilateral
CPT/HCPCS: 36415; 80048; 84436; 84443

== ENCOUNTER → 2025-03-07 | Outpatient (CLI) | payer MEDICARE, SELFPAY ==
--- NOTE | 2025-03-07 10:01 | ECHOD_ITS ---
Reason For Study Reason For Study: OTHER Procedure This was a 2D Doppler, Color Flow transthoracic echocardiogram. Exam performed in department. Left Ventricle Normal size and thickness. The LV ejection fraction is 65 %. Stage 1 diastolic dysfunction. Right Ventricle Normal right ventricle. Atria Cannot exclude left atrial mass. Recommend cardiac CT or MRI for further evaluation. Normal right atrium. Mitral Valve Mild mitral annular calcification. Trivial mitral valve insufficiency. Tricuspid Valve Mild tricuspid valve insufficiency. Normal pulmonary artery pressure. Aortic Valve Trisinus/trileaflet aortic valve. Pulmonic Valve Mild (1+) pulmonic valve insufficiency. Great Vessels Mild to moderately dilated aortic root. Pericardium/Pleural No pericardial effusion. MMode/2D Measurements & Calculations LVIDd: 4.1 cm IVSd: 0.86 cm Ao root diam: 4.2 cm LVIDs: 2.6 cm LVPWd: 1.1 cm FS: 36.9 % LAV(MOD-bp): 25.3 ml LVAd ap4: 16.1 cm2 SV(MOD-sp4): 19.6 ml LAV(MOD-bp) Indexed: 14.5 ml/m2 LVLd ap4: 6.9 cm SI(MOD-sp4): 11.3 ml/m2 LAV(MOD-sp2): 13.5 ml EDV(MOD-sp4): 31.4 ml LAV(MOD-sp4): 35.5 ml EDV(sp4-el): 31.6 ml LVAs ap4: 8.5 cm2 LVLs ap4: 5.7 cm ESV(MOD-sp4): 11.8 ml ESV(sp4-el): 10.6 ml EF(MOD-sp4): 62.5 % EF(sp4-el): 66.6 % SV(sp4-el): 21.1 ml LA A4 area: 12.0 cm2 RA A4 area: 9.6 cm2 Time Measurements MV dec time: 0.15 sec Doppler Measurements & Calculations MV E max michele: 61.4 cm/sec Lat Peak E' Michele: 7.0 cm/sec Med Peak E' Michele: 5.1 cm/sec MV A max michele: 128.9 cm/sec E/E' lat: 8.8 E/E' med: 12.2 MV E/A: 0.48 MV V2 max: 155.5 cm/sec Ao V2 max: 198.8 cm/sec MV max P.7 mmHg MV dec slope: 421.6 cm/sec2 Ao max P.8 mmHg MV V2 mean: 75.0 cm/sec Ao V2 mean: 125.5 cm/sec MV mean P.8 mmHg Ao mean P.5 mmHg MV V2 VTI: 31.5 cm Ao V2 VTI: 38.3 cm AV (velocity ratio): 1.1 LV V1 max: 194.7 cm/sec PA V2 max: 136.0 cm/sec TR max michele: 257.7 cm/sec LV V1 max P.2 mmHg PA V2 mean: 90.7 cm/sec TR max P.6 mmHg LV V1 mean P.0 mmHg LV V1 mean: 126.9 cm/sec LV V1 VTI: 41.9 cm ECHO/Echo Complete Interpretation Summary The LV ejection fraction is 65 %. Stage 1 diastolic dysfunction. Cannot exclude left atrial mass. Recommend cardiac CT or MRI for further evalua tion. Mild mitral annular calcification. Mild (1+) pulmonic valve insufficiency. Mild to moderately dilated aortic root. Ordering Physician: Debra Saleem Referring Physician: Debra Saleem Performed By: Shanti Vargas RCS
== END | disposition home or self-care (01) ==
LOC: CVS 09:58
PROVIDERS: Referring Provider Internal Medicine Cardiovascular Disease; Visit Provider Internal Medicine Cardiovascular Disease
DX: I51.89 Other ill-defined heart diseases (principal)
CPT/HCPCS: 93306

== ENCOUNTER → 2025-03-18 | Outpatient (REF) | payer MEDICARE, SELFPAY ==
[2025-03-18 08:14] LABS: Hematocrit 35.5 % (37-47); Hemoglobin 11.6 g/dL (12.0-15.0); Mean Corp Hgb Conc 32.7 g/dL (32-36); Mean Corpuscular Volume 93.4 fL (81-99); Mean Platelet Vol. 10.5 fl (6.2-12.0); Platelet Count 253 K/mm3 (150-450); RBC Distribution Width CV 13.6 % (11.6-14.6); RBC Distribution Width SD 46.8 fl (35.1-43.9); Red Blood Count 3.80 M/mm3 (4.2-5.4); White Blood Count 6.6 K/mm3 (4.4-11.0)
[2025-03-18 08:58] LABS: T4 Total, Thyroxin 9.2 ug/dL (4.8-13.9); Vitamin D,25 Hydroxy 25.8 ng/mL (30-100)
[2025-03-18 08:59] LABS: AST(SGOT) 21 U/L (<=31); Alanine Aminotransfer ALT/SGPT 10 U/L (<=34); Albumin, Serum 3.4 g/dL (3.4-4.8); Alkaline Phosphatase 107 U/L (35-104); Anion Gap 9 (5-15); BUN 19 mg/dL (4-19); BUN/Creat Ratio 21.2 RATIO (10-20); Calcium,Total 9.7 mg/dL (7.6-11.0); Carbon Dioxide 22.3 mmol/L (21.0-32.0); Chloride 111 mmol/L (98-108); Globulin 2.8 g/dL (2.2-4.2); Glucose 80 mg/dL (70-99); Potassium 4.6 mmol/L (3.3-5.1)
== END ==
PROVIDERS: Visit Provider Family Medicine
DX: E03.9 Hypothyroidism, unspecified (principal); N18.9 Chronic kidney disease, unspecified; I95.9 Hypotension, unspecified; M19.90 Unspecified osteoarthritis, unspecified site; M81.0 Age-related osteoporosis without current pathological fracture
CPT/HCPCS: 36415; 80053; 82306; 84436; 84443; 85027

== ENCOUNTER → 2025-04-16 | Outpatient (CLI) | payer MEDICARE, SELFPAY ==
--- NOTE | 2025-04-16 15:57 | CT_ITS ---
PROCEDURE: CHEST WITH CONTRAST 04/16/2025 REASON FOR EXAM: ATRIAL MASS/THROMBUS TECHNIQUE: CHEST WITH CONTRAST Coronal and Sagittal reconstruction series were provided. CONTRAST: Isovue-300 VOLUME: 100 mL One or more dose reduction techniques were used (e.g., Automated exposure control, adjustment of the mA and/or kV according to patient size, use of iterative reconstruction technique). RADIATION DOSE SUMMARY: CTDlvol: 14.4 mGy DLP: 383.44 mGycm COMPARISON: None FINDINGS: Hardware: None Scattered hypodense nodules in the right lobe of the thyroid. Small subcentimeter hypodense nodules in the left lobe. Lymph nodes: No mediastinal or hilar lymph nodes. Heart and Vasculature: Borderline cardiomegaly. No intraluminal filling defects are seen within the left atrium. Mild atherosclerotic plaque formation of the aortic arch. No coronary artery calcification is seen. Lungs and Airways: Hyperinflation. No pulmonary nodule or infiltrate is seen. Mild scarring at the lung bases. Pleura: No pleural effusion. Upper Abdomen: Moderate-sized hiatal hernia. Bones: Increased kyphosis. Multilevel disc space narrowing. CT/Chest WITH Contrast IMPRESSION: Coronary artery calcification (CAC) is is absent No intraluminal filling defects seen in the left atrium. Scarring at the lung bases. Moderate-sized hiatal hernia. Reading Location: [id number]
== END | disposition home or self-care (01) ==
LOC: CT 15:55
PROVIDERS: Referring Provider Student in an Organized Health Care Education/Training Program; Visit Provider Student in an Organized Health Care Education/Training Program
DX: R93.1 Abnormal findings on diagnostic imaging of heart and coronary circulation (principal); I48.91 Unspecified atrial fibrillation; I48.92 Unspecified atrial flutter; I51.89 Other ill-defined heart diseases
CPT/HCPCS: 71260; Q9967